=== PATIENT | female | born 1985 | race Caucasian/White ===

== ENCOUNTER → 2016-03-05 | Outpatient (CLI) | payer OTHER ==
[~2016-03-05] MED LIST: ACET-1256 PO; CLC100 PO; DIVA250T PO; DIVA500T3 PO; EFFSR75 PO; IBUP-1050 PO; LEVO137T3 PO; MISC-696; MTR600X PO; NITR1CAP16 PO; ONDA4TAB46 PO; OXYC-57 PO; PRENTAB65 PO; PROM5SUP2 PR
[2016-03-05 11:10] LABS: HEMATOCRIT 33.4 % (37-47)
[2016-03-05 12:01] LABS: URINE APPEARANCE CLEAR (CLEAR); URINE BILIRUBIN NEG (NEG); URINE COLOR YELLOW; URINE NITRITE NEG (NEG); URINE PH 8.5 (4.5-7.5); URINE SPECIFIC GRAVITY 1.015 (1.000-1.030); UROBILINOGEN NEG (NEG)
[2016-03-05 12:10] LABS: GTGD 50 Grams
[2016-03-05 12:21] LABS: MANUAL MICROSCOPIC REQUIRED? NO; REVIEW REQ? NO
== END | disposition home or self-care (01) ==
LOC: C.LAB1850 09:24
PROVIDERS: ATTEND Obstetrics & Gynecology
DX: O09.93 Supervision of high risk pregnancy, unspecified, third trimester (principal); O99.283 Endocrine, nutritional and metabolic diseases complicating pregnancy, third trimester; E03.8 Other specified hypothyroidism

== ENCOUNTER → 2016-03-31 | Outpatient (CLI) | payer OTHER | END | disposition home or self-care (01) | LOC: C.LAB1850 11:17 | PROVIDERS: ATTEND Internal Medicine Endocrinology, Diabetes & Metabolism | DX: E03.8 Other specified hypothyroidism (principal) ==

== ENCOUNTER → 2016-04-30 | Outpatient (CLI) | payer OTHER | END | disposition home or self-care (01) | LOC: C.LABSPEC 11:28 | PROVIDERS: ATTEND Obstetrics & Gynecology | DX: O09.93 Supervision of high risk pregnancy, unspecified, third trimester (principal) ==

== ENCOUNTER 2016-05-17 13:10 | Inpatient (IN) | payer OTHER ==
[~2016-05-17] VITALS: Ht 170.2 cm; Wt 90.5 kg
[~2016-05-17 13:10] MED LIST changes: -ACET-1256 PO; -CLC100 PO; -DIVA250T PO; -DIVA500T3 PO; -EFFSR75 PO; -IBUP-1050 PO; -MISC-696; -MTR600X PO; -NITR1CAP16 PO; -OXYC-57 PO; -PROM5SUP2 PR
[2016-05-17] MEDS ORDERED: LACTATED RINGER'S 1000ML 1,000 ML IV SCH ×2 (13:35→17:06)
[2016-05-17] MEDS ORDERED: CITRIC ACID/SODIUM CITRATE 15 ML UDC PO ONE (13:45)
[2016-05-17] MEDS ORDERED: CEFAZOLIN IV 2,000 MG in DEXTROSE 5% 50ML 50 ML IV ONE (14:00)
[2016-05-17 14:40] VITALS: Ht 170.2 cm; Wt 90.5 kg
[2016-05-17] MEDS ORDERED: FENTANYL CITRATE INJ 50 MCG/1 ML 2 ML VIAL ONE (16:32)
[2016-05-17] MEDS ORDERED: MoRPHine SULFATE PF 1 MG/ML 10 ML AMP/VIAL ONE (16:32)
[2016-05-17] MEDS ORDERED: OXYTOCIN INJ 20 UNITS in LACTATED RINGER'S 1000ML 1,000 ML IV SCH (17:06)
[2016-05-17] MEDS ORDERED: KETOROLAC TROMETHAMINE 30 MG/ML VIAL ONE (17:08)
[2016-05-17] MEDS ORDERED: ESMOLOL HCL 10 MG/ML 10 ML VIAL ONE (17:08)
[2016-05-17] MEDS ORDERED: METOPROLOL TARTRATE 1 MG/ML VIAL ONE (17:08)
[2016-05-17] MEDS ORDERED: DIPHTHERIA/TETANUS/PERTUSSIS 0.5 ML SYR/VIAL IM. ONE (17:15)
[2016-05-17] MEDS ORDERED: KETOROLAC TROMETHAMINE 30 MG/ML VIAL IV. PRN (17:15)
[2016-05-17] MEDS ORDERED: ONDANSETRON INJ 2 MG/ML 2 ML VIAL IV PRN ×2 (17:15→17:45)
[2016-05-17] MEDS ORDERED: SUPERCREAM 0.870 % 15GM JAR EXT PRN (17:15)
[2016-05-17] MEDS ORDERED: LANOLIN OINT EXT PRN ×2 (17:15)
[2016-05-17] MEDS ORDERED: HYDROCORTISONE ACETATE 25 MG SUPP PR PRN (17:15)
[2016-05-17] MEDS ORDERED: BENZOCAINE 20% AER SPR 82.5 GM CAN EXT PRN (17:15)
[2016-05-17] MEDS ORDERED: ONDANSETRON INJ 2 MG/ML 2 ML VIAL ONE (17:16)
[2016-05-17] MEDS ORDERED: OXYTOCIN INJ 10 UNITS/ML VIAL ONE (17:16)
--- NOTE | 2016-05-17 17:22 | [facility] Post Operative Brief Note ---
Immediate Operative Summary Operative Date May 17, 2016. Pre-Operative Diagnosis 1. 39 week iup 2. SROM 3. Prior complications due to fourth degree perineal laceration 4. desires primary caesarean section Post-Operative Diagnosis Same Procedure(s) Performed Primary Low Transverse Section for the of a viable female child Surgeon Dr.Shreya Corrigan Linux Programmer Surgeon(s) RN Estimated Blood Loss 500 Findings viable female apgars 9,9. normal uterus, tubes and ovaries bilaterally. Fluids (cc crystalloids) 1000 Specimens Placenta: Cord Blood Drains youngblood Anesthesia spinal with duramorph Complication(s) None Disposition Recovery Room / PACU
[2016-05-17] MEDS ORDERED: NALOXONE HCL INJ 1 MG in SODIUM CHLORIDE 0.9% 1000ML 1,000 ML IV PRN (17:32)
[2016-05-17] MEDS ORDERED: LACTATED RINGER'S 1000ML 500 ML IV PRN (17:32)
[2016-05-17] MEDS ORDERED: NALOXONE HCL INJ 0.08 MG in SYRINGE 1.8 ML IV PRN (17:32)
[2016-05-17] MEDS ORDERED: SODIUM CHLORIDE 0.9% 1000ML 1,000 ML IV PRN (17:32)
[2016-05-17] MEDS ORDERED: DiphenhydrAMINE HCL 50 MG/ML VIAL IV PRN (17:45)
[2016-05-17] MEDS ORDERED: NALBUPHINE HCL INJ 10 MG/ML AMP IV PRN (17:45)
[2016-05-17] MEDS ORDERED: EpHEDrine SULFATE INJ 50 MG/ML AMP IV PRN (17:45)
[2016-05-17] MEDS ORDERED: NALOXONE HCL 0.4 MG/1 ML VIAL/CARP IV PRN (17:45)
[2016-05-17] MEDS ORDERED: NO NARCOTICS OR SEDATIVES SCH (17:45)
[2016-05-17] MEDS ORDERED: PROMETHAZINE HCL INJ 25 MG in SODIUM CHLORIDE 0.9% 50ML 50 ML IV PRN (17:45)
[2016-05-17] MEDS ORDERED: MoRPHine SULFATE 2 MG/ML CARP IV PRN (17:45)
[2016-05-17] MEDS ORDERED: MoRPHine SULFATE PF 1 MG/ML 10 ML AMP/VIAL EPI PRN (17:45)
--- NOTE | 2016-05-17 17:47 | OPERATIVE REPORT ---
DATE OF OPERATION: 05/17/2016 PREOPERATIVE DIAGNOSES: 1. 39-WEEK intrauterine . 2. Prior history of fourth degree obstetrical laceration with desire for section. 3. Spontaneous rupture of membranes. POSTOPERATIVE DIAGNOSES: Same. PROCEDURE: Primary low transverse section. SURGEON: Dr. Patricia Corrigan. CRIMINAL RESEARCH SPECIALIST: RN. IV FLUIDS: 1000 mL. ESTIMATED BLOOD LOSS: 500 mL. ANESTHESIA: Spinal with Duramorph. FINDINGS: Viable female , Apgars 9 and 9. Normal uterus, tubes and ovaries bilaterally. INDICATIONS: A 31-year-old 2, para 1-0-0-1 with a history of prior spontaneous vaginal delivery complicated by a complicated fourth degree perineal laceration, who desired primary for this delivery. The patient presented with confirmed spontaneous rupture of membranes. DESCRIPTION OF PROCEDURE: The patient was taken to the operating room and identified. After adequate spinal anesthesia was obtained, she was placed in the supine position with a leftward tilt and prepped and draped in the usual sterile fashion. The knife was used to create a Pfannenstiel skin incision that was carried down to underlying layer of fascia. The fascia was nicked in the midline and this opening was extended laterally using Salamanca scissors. Koko clamps were placed in the superior and inferior aspects of the fascial incision tenting it upwards and the underlying rectus muscles were dissected off the overlying fascia both sharply and bluntly using Salamanca scissors. The rectus muscles were bluntly in the midline. The peritoneal cavity was bluntly entered into. This opening was extended superiorly and inferiorly sharply with direct visualization of the bladder and then stretched. The bladder blade was placed. The vesicouterine peritoneum was grasped and elevated. It was opened up into sharply with Metzenbaum scissors and a bladder flap was created both sharply and digitally. The bladder blade was replaced. Knife was used to create a hysterotomy that was then stretched. The operators hand was placed through the hysterotomy and the bladder blade was removed. With fundal pressure, the cephalic was delivered. The nose and mouth were bulb suctioned. A double nuchal cord that was loose was reduced. The shoulders and body were delivered with ease. The infant was vigorous and crying at . Cord blood was obtained. The placenta was manually expressed. The uterus was exteriorized and cleared of all clots and debris. It was closed in 2 layers, first interlocking stitch of 0 Vicryl followed by an imbricating stitch of 0 Vicryl. Two bleeding sites in the midline were noted and were stitched with [id number] sutures of 0 Vicryl and 2-0 Vicryl for excellent hemostasis. The pelvis was irrigated. The uterus was returned to the abdomen. The gutters were cleared of all clots and debris. The hysterotomy was reinspected and noted to be hemostatic. The fascia was closed in a running fashion using 0 Vicryl. The subcutaneous fat was copiously irrigated. The subcutaneous tissue was reapproximated using 2-0 chromic. The skin was then closed in a subcuticular fashion using 4-0 Vicryl. All sponge, lap and needle counts were correct x2. The patient was returned to the recovery room in stable condition. I attest to the content of the Intraoperative Record and any orders documented therein. Any exceptio ns are noted below.
--- NOTE | 2016-05-17 17:54 | Anesthesiology Progress Note ---
Anesthesia Post Op Note Date & Time May 17, 2016 at 17:53 Notes Mental Status: alert / awake / arousable, participated in evaluation Pt Amnestic to Procedure: Yes Nausea / Vomiting: adequately controlled Pain: adequately controlled Airway Patency, RR, SpO2: stable & adequate BP & HR: stable & adequate Hydration State: stable & adequate Neuraxial Anesthesia: was administered, sensory block is resolving Anesthetic Complications: no major complications apparent
[2016-05-17] MEDS: MEPERIDINE HCL 25 MG/ML CARP IV PRN ×2 (19:26→22:01)
[2016-05-17 20:20] VITALS: BP 117/69; PULSE 77; TEMP 36.8; O2SAT 97; O2SAT 98
[2016-05-17] MEDS: DOCUSATE SODIUM 100 MG CAP PO SCH (20:20)
[2016-05-17] MEDS: SIMETHICONE 80 MG CHEW PO SCH (20:20)
[2016-05-17 20:50] VITALS: BP 144/84; PULSE 71; O2SAT 96
[2016-05-17 21:20] VITALS: BP 118/57; PULSE 75; O2SAT 97
[2016-05-17 22:20] VITALS: BP 133/77; PULSE 72; O2SAT 97
[2016-05-17 23:30] VITALS: BP 120/73; PULSE 77; TEMP 37.2; O2SAT 98
[2016-05-18] VITALS (12 sets, daily range): BP systolic 107–137; BP diastolic 60–87; PULSE 70–83; TEMP 36.7–36.8; O2SAT 93–99
[2016-05-18] MEDS: KETOROLAC TROMETHAMINE 30 MG/ML VIAL IV. PRN ×2 (00:59→07:12)
--- NOTE | 2016-05-18 07:03 | Progress Note ---
Subjective May 18, 2016. Subjective conversation w/ patient, physical exam Voiding: youngblood catheter in place Passing Gas: Yes Diet Tolerance: Clear Liquids Lochia: Small Feeding Type: Breast Feeding Pain: having some pain Objective Vital Signs Date Time Temp Pulse Resp B/P Pulse Ox O2 Delivery O2 Flow Rate FiO2 05/18/16 05:25 16 96 05/18/16 04:30 18 99 05/18/16 03:30 36.7 70 18 107/60 96 Room Air 05/18/16 03:30 18 96 05/18/16 02:30 18 97 05/18/16 01:30 18 97 05/18/16 00:30 18 98 05/17/16 23:30 37.2 77 18 120/73 98 Room Air 05/17/16 23:30 18 98 05/17/16 23:30 Room Air 05/17/16 22:20 72 18 133/77 97 Room Air 05/17/16 22:20 18 97 05/17/16 21:20 18 97 05/17/16 21:20 75 18 118/57 97 Room Air 05/17/16 20:50 71 18 144/84 96 Room Air 05/17/16 20:20 36.8 77 18 117/69 98 Room Air 05/17/16 20:20 18 98 05/17/16 20:20 98 Room Air Physical Exam General Appearance: WELL-APPEARING, WD/WN, NO APPARENT DISTRESS Respiratory/Chest: lungs clear Cardiovascular: regular rate, rhythm Abdomen: non tender, soft Fundus: Firm, Relation to Umbilicus (2 down) Incision Description: Clean, Dry & Intact (dressing still in place) Extremities: non-tender Laboratory Results Last 24 Hours Test 05/18/16 06:00 Assessment and Plan Problem List Post-Op Day#: 1 Continue Routine Care: stable. routine care. needs pain mgmt. plan to ambulate later today, d/c youngblood later this am. 6wks pp check. cbc pending. breast feeding.
[2016-05-18] MEDS ORDERED: LEVOTHYROXINE 137 MCG TAB PO SCH (07:30)
[2016-05-18 07:31] LABS: MEAN CORPUSCULAR HGB CONC 31.7 g/dl (32-36)
[2016-05-18 07:45] LABS: HEMATOCRIT 33.4 % (37-47); MEAN CELL VOLUME 76.3 fL (80-100); MEAN CORPUSCULAR HEMOGLOBIN 24.2 pg (25-34); RED BLOOD COUNT 4.38 M/uL (4.2-5.4); WHITE BLOOD COUNT 10.94 K/uL (4.8-10.8)
[2016-05-18] MEDS: DOCUSATE SODIUM 100 MG CAP PO SCH ×2 (08:05→20:39)
[2016-05-18] MEDS: SIMETHICONE 80 MG CHEW PO SCH ×3 (08:05→20:39)
[2016-05-18 08:24] LABS: BASO % 0.1 %; BASO ABS # 0.01 K/uL (0-0.2); COMPLETE YES; ECHINOCYTES 1+; EOS % 0.9 %; GIANT PLATELETS 1+; IG% 0.4 %; LYMPH % 11.3 %; LYMPH ABS # 1.24 K/uL (1.2-3.4); MONO % 3.9 %; NEUT % 83.4 %; PLATELET COUNT 130 K/uL (130-400); PLT ESTIMATE DECREASED
[2016-05-18] MEDS ORDERED: DC INTRASPINAL MORPHINE SCH (10:00)
[2016-05-18] MEDS ORDERED: ZOLPIDEM TARTRATE 5 MG TAB PO PRN (10:00)
[2016-05-18] MEDS ORDERED: DiphenhydrAMINE HCL 50 MG/ML VIAL IV PRN (10:00)
[2016-05-18] MEDS: OXYCODONE/ACETAMINOPHEN 5-325 TAB PO PRN ×4 (10:10→22:09)
[2016-05-18] MEDS: IBUPROFEN 600 MG TAB PO PRN ×3 (14:43→22:08)
[2016-05-19 00:30] VITALS: BP 117/75; PULSE 77; TEMP 36.6
[2016-05-19] MEDS: IBUPROFEN 600 MG TAB PO PRN ×5 (02:42→21:11)
[2016-05-19] MEDS: OXYCODONE/ACETAMINOPHEN 5-325 TAB PO PRN ×5 (02:44→21:12)
--- NOTE | 2016-05-19 06:47 | Progress Note ---
Subjective May 19, 2016. Subjective conversation w/ patient, physical exam Ambulation: ambulating normally Voiding: no voiding problems Passing Gas: Yes Diet Tolerance: Regular Diet Lochia: Small Feeding Type: Breast Feeding Review of Systems Constitutional: No chills, No fever, No sweats Respiratory: No cough, No shortness of breath Cardiac: No chest pain, No claudication Objective Vital Signs Date Time Temp Pulse Resp B/P Pulse Ox O2 Delivery O2 Flow Rate FiO2 05/19/16 00:30 Room Air 05/19/16 00:30 36.6 77 18 117/75 Room Air 05/18/16 15:35 Room Air 05/18/16 15:35 36.8 83 18 137/87 Room Air 05/18/16 10:00 20 95 05/18/16 09:00 18 97 05/18/16 08:00 18 93 05/18/16 08:00 93 Room Air 05/18/16 07:30 36.7 71 20 114/65 Room Air 05/18/16 07:00 20 96 Physical Exam General Appearance: WELL-APPEARING, NO APPARENT DISTRESS Respiratory/Chest: lungs clear, no accessory muscle use Cardiovascular: regular rate, rhythm, no murmur Fundus: Firm, Non-Tender, Relation to Umbilicus Incision Description: Clean, Dry & Intact Extremities: non-tender, no calf tenderness Laboratory Results Last 24 Hours Test 05/19/16 06:00 Assessment and Plan Problem List Medical Problems: (1) Status: Acute (2) Seizure-like activity Status: Acute (3) Vaginal bleeding Status: Acute (4) Vomiting Status: Acute Post-Op Day#: 2 Continue Routine Care: s/p C section Day 2 - vitals reviewed and wnl - Hgb 10.6 yesterday - Blood: O- (baby O-), GBS-, Rubella immune - patients mood improved since yesterday (on venlafaxine 75mg), patient with follow with PCP as outpatient - Patient doing well clinically - Encourage ambulation, encourage breast feeding, monitor lochia - CONTINUE ROUTINE POST C SECTION CARE Resident Physician Supervision Note: I was present with Dr. Castillo during the history and exam. I discussed the case with the resident and agree with the findings and plan as documented in the note. Any exceptions or clarifications are listed here: Doing well. Discussed mood. Just was bad day with crying baby yesterday. She is feeling better today but agrees to start Effexor. She will plan 2wk check up with us and rec she establish with PCP for residential mgmt. Discussed therapy as well. Pt will consider. No HI or SI. Routine care. Hgb pending today. Documented By: Patricia Corrigan
[2016-05-19] MEDS: LEVOTHYROXINE 175 MCG TAB PO SCH (07:47)
[2016-05-19] MEDS: SIMETHICONE 80 MG CHEW PO SCH ×4 (07:49→19:45)
[2016-05-19] MEDS: DOCUSATE SODIUM 100 MG CAP PO SCH ×2 (07:49→19:45)
[2016-05-19 07:56] LABS: HEMATOCRIT 33.6 % (37-47)
[2016-05-19 08:00] VITALS: BP 112/71; PULSE 78; TEMP 36.6; O2SAT 97
[2016-05-19] MEDS ORDERED: VENLAFAXINE HCL XR 75 MG CAPXR PO SCH (08:00)
[2016-05-19] MEDS: VENLAFAXINE HCL XR 75 MG CAPXR PO SCH (08:11)
[2016-05-19 15:35] VITALS: BP 136/78; PULSE 65; TEMP 36.9
[2016-05-19] MEDS ORDERED: OXYC-57 PO (21:04)
[2016-05-19] MEDS ORDERED: CLC100 PO (21:04)
[2016-05-19] MEDS ORDERED: MTR600X PO (21:04)
--- NOTE | 2016-05-19 21:05 | Discharge Instructions ---
Discharge Instructions Date of Service May 19, 2016. Admission Reason for Admission: R/O Rupture Of Membrane Discharge Discharge Diagnosis / Problem: recovery from section Discharge Goals Goal(s): Routine recovery after Activity Recommendations Activity Limitations: per Instructions/Follow-up section . Instructions / Follow-Up Instructions / Follow-Up ACTIVITY RECOMMENDATIONS: * Gradual return to full activity over the next 2-3 weeks. * No lifting - nothing heavier than baby over the next 2-3 weeks. * Do not engage in vigorous exercise, sexual activity or sports until cleared by your physician. * Do not drive or operate any motorized equipment until cleared by your physician. * You may shower/bathe daily. MEDICATIONS: For discomfort or pain, you may use Acetaminophen (Tylenol), Ibuprofen (Advil), or Naproxen (Aleve) following the package directions. For constipation you may use Colace following the package directions. BREAST CARE: If you are not breast feeding: * Wear a supportive bra 24 hours a day for one to two weeks. * Avoid stimulating your breasts and nipples as much as possible during the first few weeks after delivery. * When taking a shower, have the warm water hit your back, not breasts. * When your breasts feel full, apply ice packs. Usually three to four times a day helps ease the discomfort. * Take a mild pain medication (Tylenol / Motrin) when you are uncomfortable. If breast feeding: * Use breast milk to lubricate nipples. Lansinoh cream may be used for sore nipples. You do not need to remove cream prior to breast feeding. If using a different brand of cream, check the label for directions regarding removal of cream prior to nursing. * Wear a supportive bra. * If having problems with breasts or breast feeding, call a decorator consultant or your health care provider. EPISIOTOMY CARE: After delivery, if you have an episiotomy (stitches), the following steps will ease discomfort and aid healing. * For the first 24 hours after delivery, place ice packs next to your episiotomy to help reduce swelling. * After the first 24 hour-period, sitz baths, either portable or in the tub, are suggested. A shower with a shower arm sprayed over the episiotomy may be comforting. * Carmen care should be done after each voiding and bowel movement. Squirt warm water from a plastic bottle over the perineum (region of the body between the anus and urinary opening) and pat dry. * Use Dermoplast to ease discomfort. Shake container. [place] directly over the episiotomy. Place a Tucks on a clean sanitary pad next to your episiotomy. SPECIAL CARE INSTRUCTIONS: When you are discharged from the hospital, it is important for you to follow the instructions listed below: * During the first week at home, you should be able to care for yourself and your baby. In addition, the usual light household activities are encouraged. * Limit your activities to the way you feel. Do not try to clean the house or move furniture. Be sensible. * If you actively engage in sports and have done so up until the time of your delivery, you may resume these activities as soon as you feel able. This may take up to one month or even longer. Use good judgment. * Continue to take your vitamins for at least six weeks after the of your baby. * Your diet need not be limited unless you were on a special diet before your delivery. Breast-feeding mothers need around 2500 calories per day and at least 64-80 ounces of fluid per day (8 to 10 glasses). * You should eat foods from the four major food groups. Crash diets or fad diets are to be avoided. Eating lean meats, fresh fruits and vegetables, low-fat dairy products, high fiber foods and a regular exercise program, will help you get back to your pre- weight without putting your health at risk. * Constipation is sometimes a problem after delivery. Take a mild laxative as needed. If breast feeding, Milk of Magnesia is acceptable to use. You may use a suppository or Fleets enema if no episiotomy. * A daily shower or tub bath is suggested. Be sure to thoroughly and gently dry the perineum. * A bloody vaginal discharge will usually continue until around four weeks post . A small amount of bleeding may continue for as long as six weeks. Vaginal discharge changes from the bright red bleeding after delivery to pink then brownish and finally yellowish-pink before becoming white and disappearing. * Bleeding may increase with activity. Your first period may come in 4-8 weeks. If you are breast feeding, your period may be delayed even longer. * Catlin (sex) can begin whenever both you and your partner feel comfortable and do not have any form of genital infection. It is recommended that you wait at least six weeks for internal and external healing to occur. If you have questions, please talk to your health care practitioner. A condom should be used to prevent infection and . * Foreplay, gentle intercourse and lubrication is very important the first several times to prevent pain. A water-based lubricant such as K-Y jelly or Astroglide may be used. * If you have RH negative blood and your baby is RH positive, you will receive RHOGAM by injection prior to discharge. The nurse will give you a card to keep with you that has the date and place that you received RHOGAM after delivery. * During your care, you had a Rubella screen done to check for the presence of rubella antibodies in your blood. If your test was negative, you will receive a Rubella vaccine prior to discharge. This vaccine may cause a fever, soreness at the injection site and flu-like symptoms. If these symptoms persist, notify your health care practitioner. is not advised for one month after a Rubella vaccine. * Verbalizes understanding of car seat law as reviewed with patient nursing. * Car Seat hand-out given and reviewed with patient by nursing. * Shaken baby information reviewed with patient by nursing. Call you doctor if: * Heavy bleeding (saturating several pads an hour) or passing clots the size of your fist. * A fever >101 degrees F (38.3 degrees C) on two occasions four hours apart and /or chills. * Unusual pain in the pelvic or vaginal areas. * "Baby Blues" lasting longer than two weeks. If you have any questions or concerns, call your health care practitioner at . FOLLOW UP VISIT: * Please call the office at to schedule a 6 week examination. It is important you keep this appointment. It is important for you to make arrangements for either yearly or twice yearly check-ups thereafter. Current Hospital Diet Patient's current hospital diet: Gluten Free Diet, Regular OB Diet Discharge Diet Recommended Diet: Regular OB Diet Procedures Procedures Performed: Primary Low Transverse Section for the of a viable female child Pending Studies Studies pending at discharge: no Medical Emergencies . Who to Call and When: Medical Emergencies: If at any time you feel your situation is an emergency, please call 911 immediately. . Non-Emergent Contact Non-Emergency issues call your: Salon Shampoo Assistant . . "Provider Documentation" section prepared by Lola Peoples. VTE Core Measure Inpt VTE Proph given/why not?: Treatment not indicated
[2016-05-20] VITALS: BP 116/64; PULSE 64; TEMP 36.7
[2016-05-20] MEDS: IBUPROFEN 600 MG TAB PO PRN ×3 (01:46→12:25)
[2016-05-20] MEDS: OXYCODONE/ACETAMINOPHEN 5-325 TAB PO PRN ×3 (01:49→12:25)
[2016-05-20 02:00] VITALS: O2SAT 98
--- NOTE | 2016-05-20 07:22 | Progress Note ---
Subjective May 20, 2016. Subjective conversation w/ patient, physical exam Ambulation: ambulating normally Voiding: no voiding problems Diet Tolerance: Regular Diet Lochia: Moderate Feeding Type: Breast Feeding Comment: doing well on Effexor now. Review of Systems Constitutional: No chills, No fatigue, No fever, No problem reported, No sweats , No weakness, No weight loss Objective Vital Signs Date Time Temp Pulse Resp B/P Pulse Ox O2 Delivery O2 Flow Rate FiO2 05/20/16 02:00 98 Room Air 05/20/16 00:00 Room Air 05/20/16 00:00 36.7 64 16 116/64 Room Air 05/19/16 15:35 Room Air 05/19/16 15:35 36.9 65 18 136/78 Room Air 05/19/16 08:00 Room Air 05/19/16 08:00 36.6 78 20 112/71 97 Physical Exam General Appearance: WELL-APPEARING, NO APPARENT DISTRESS Abdomen: soft Fundus: Firm, Non-Tender, Relation to Umbilicus (2 below) Incision Description: Clean, Dry & Intact Extremities: no calf tenderness Laboratory Results Last 24 Hours Test 05/19/16 07:22 Hemoglobin 10.8 g/dL Hematocrit 33.6 % Assessment and Plan Problem List Medical Problems: (1) Status: Acute (2) Seizure-like activity Status: Acute (3) Vaginal bleeding Status: Acute (4) Vomiting Status: Acute Post-Op Day#: 3 Continue Routine Care: stable post-op / progress continue on Effexor rx's for percocet & motrin follow up in 6 weeks
[2016-05-20] MEDS ORDERED: EFFSR75 PO (07:23)
[2016-05-20] MEDS ORDERED: MISC-696 (08:44)
[2016-05-20 08:45] VITALS: BP 124/81; PULSE 81; TEMP 36.9
[2016-05-20] MEDS: VENLAFAXINE HCL XR 75 MG CAPXR PO SCH (08:47)
[2016-05-20] MEDS: DOCUSATE SODIUM 100 MG CAP PO SCH (08:47)
[2016-05-20] MEDS: LEVOTHYROXINE 175 MCG TAB PO SCH (08:47)
[2016-05-20] MEDS: SIMETHICONE 80 MG CHEW PO SCH ×2 (08:48→12:24)
[2016-05-20 12:22] VITALS: BP_DIAS 81; PULSE 81; TEMP 36.9
--- NOTE | 2016-05-21 19:02 | DISCHARGE SUMMARY ---
ADMISSION DIAGNOSES: 1. 39-week intrauterine . 2. Spontaneous rupture of membranes. 3. Prior history of fourth degree obstetrical laceration with desire for section. DISCHARGE DIAGNOSES: Same. PROCEDURE: Primary low transverse section. BRIEF HISTORY AND HOSPITAL COURSE: A 31-year-old 2, para 1-0-0-1 with a history of a prior spontaneous vaginal delivery complicated by a complicated fourth degree perineal laceration, who desired primary for this delivery. She presented to the hospital with confirmed spontaneous rupture of membranes. She underwent the above stated procedure without incident. Her estimated blood loss was 500 mL. Her postop hemoglobin was 10.8. Her postop course and recovery was complicated by depressed mood. For that reason, she was started on Effexor which was a prior medication she had used for depression. Her postop course and recovery was otherwise unremarkable. She was tolerating a regular diet, voiding spontaneously without difficulty and ambulating without difficulty and was stable for discharge to home on her postop day #3. She was given prescriptions for Percocet and Motrin. She was instructed to follow up in 6 weeks' time for routine checkup. She was aware of a possible 2-week checkup for mood and was instructed to follow up with her PCP for her ongoing Effexor use and for her depressed mood.
== END 2016-05-20 14:00 | disposition home or self-care (01) | DRG 765 ==
LOC: C.OPB 13:10 → C.LD 13:10 → C.OPB 13:46 → C.OBG 19:44
PROVIDERS: ADMIT Obstetrics & Gynecology; ATTEND Obstetrics & Gynecology
PROC: 10D00Z1 Extraction of Products of Conception, Low, Open Approach (ICD-10-PCS; principal; 2016-05-17 14:22)
DX: O42.02 Full-term premature rupture of membranes, onset of labor within 24 hours of rupture (principal); O98.52 Other viral diseases complicating childbirth; O36.0130 Maternal care for anti-D [Rh] antibodies, third trimester, not applicable or unspecified; O26.62 Liver and biliary tract disorders in childbirth; O69.81X0 Labor and delivery complicated by cord around neck, without compression, not applicable or unspecified; B00.9 Herpesviral infection, unspecified; K90.0 Celiac disease; O99.284 Endocrine, nutritional and metabolic diseases complicating childbirth; E03.9 Hypothyroidism, unspecified; O99.02 Anemia complicating childbirth; D64.9 Anemia, unspecified; O99.214 Obesity complicating childbirth; E66.9 Obesity, unspecified; O26.893 Other specified pregnancy related conditions, third trimester; Z68.31 Body mass index [BMI] 31.0-31.9, adult; Z3A.39 39 weeks gestation of pregnancy; Z37.0 Single live birth

== ENCOUNTER 2016-07-14 12:04 | Emergency (ER) | payer OTHER ==
[~2016-07-14] VITALS: Ht 172.7 cm; Wt 76.9 kg
[~2016-07-14 12:04] MED LIST changes: +CLC100 PO; +EFFSR75 PO; +MISC-696; +MTR600X PO; -ONDA4TAB46 PO; +OXYC-57 PO
[2016-07-14 12:10] VITALS: TEMP 36.8; Ht 172.7 cm; Wt 76.9 kg
[2016-07-14] MEDS ORDERED: ONDANSETRON INJ 2 MG/ML 2 ML VIAL IV PRN (12:30)
[2016-07-14 13:04] VITALS: O2SAT 99
[2016-07-14 13:05] LABS: HEMATOCRIT 43.4 % (37-47); MEAN CELL VOLUME 78.9 fL (80-100); MEAN CORPUSCULAR HEMOGLOBIN 23.6 pg (25-34); MEAN PLATELET VOLUME 11.3 fL (7.4-10.4); PLATELET COUNT 200 K/uL (130-400); WHITE BLOOD COUNT 7.16 K/uL (4.8-10.8)
[2016-07-14 13:15] LABS: URINE APPEARANCE CLEAR (CLEAR); URINE BILIRUBIN NEG (NEG); URINE COLOR YELLOW; URINE NITRITE POS (NEG); URINE SPECIFIC GRAVITY 1.013 (1.000-1.030); UROBILINOGEN NEG (NEG); ZZUR CULT IF INDIC CLEAN CATCH YES
[2016-07-14 13:17] LABS: MANUAL MICROSCOPIC REQUIRED? NO; REVIEW REQ? YES
[2016-07-14 13:24] LABS: BUN/CREATININE RATIO 11.5 (10-20); CALCIUM 8.2 mg/dl (8.5-10.1); CREATININE 0.88 mg/dl (0.60-1.20); POTASSIUM 3.8 mmol/L (3.5-5.1)
[2016-07-14 13:27] LABS: ALB/GLOB RATIO 1.2 (0.9-2)
--- NOTE | 2016-07-14 13:31 | EMERGENCY ROOM VISIT NOTE ---
History Report prepared by Josephine: Chantell Contreras Under the Supervision of: Dr. Marcus Doyle M.D. First contact with patient: 12:16 Chief Complaint: OTHER COMPLAINT Stated Complaint: POSSIBLE SEIZURE History of Present Illness The patient is a 31 year old female who presents to the Emergency Room with complaints of a sudden seizure that occurred 45 minutes prior to arrival. The patient report that she has a history of a previous seizure in August of 2015. She states that she had an MRI, but denies any EEG. The patient reports that her seizure was related to hypokalemia, hypotension, and hypoglycemia. Per the patient's significant other, he and the patient were sitting on their porch with their two month old baby. He states that the patient had handed the baby over to him and went inside to set up a baby swing. The patient's significant other states that he heard the patient screaming, and ran inside to her. He states that he found the patient with her arms outward and rigid, her shaking, and her eyes rolled back in her head. The patient's significant other reports that the patient was also pale and her lips had turned blue. He states that the patient's pulse was tachycardic and fluttering. The patient's significant other states that he called for an ambulance. He states that the patient's episode lasted 2.5 minutes, and she was post-ictal afterwards. The patient's significant other reports that the patient had fallen into a metal item which caused abrasions to her back. The patient states that she feels less confused, but reports nausea and fatigue. She denies any chest pain, fever, chills, palpitations, back pain, or leg pain. The patient reports normal urination and bowel movements. The patient states that she has been feeling fatigued because she has not gotten the proper amount of sleep due to her 2 month old baby. She reports a headache that started last night and persisted through the morning. The patient states that she took Advil, which alleviated her headache. She additionally notes a history of Celiac disease, but states that she has not been complaint with her diet. The patient notes a history of hypothyroidism, but denies any history of diabetes or hypertension. She denies any drug use. Source of History: patient, spouse/significant other Onset: just prior to arrival Position: other (global) Quality: other (seizure) Timing: other (sudden) Associated Symptoms: + fatigue, + headache, + nausea, No back pain, No chest pain, No chills, No fevers Note: associated symptoms: the patient's arms were outward and rigid, shaking, eyes rolled back in her head, pale, lips turned blue, pulse tachycardic and fluttering Review of Systems All systems have been listed, reviewed, and are negative other than those previously mentioned. Please see Additional Medical History Sheet. Past Medical & Surgical Medical Problems: (1) 39 weeks gestation of (2) Amniotic fluid leaking (3) Anxiety (4) Celiac disease (5) Cyst of ovary (6) Depression (7) Gastroesophageal reflux disease (8) History of maternal fourth degree perineal laceration, currently in third trimester (9) Laparoscopy (10) Migraine Family History Hypertension Social History Smoking Status: Current Some Day Smoker Smokeless Tobacco Use: No Alcohol Use: none Drug Use: none Marital Status: in relationship Housing Status: lives with family Occupation Status: employed Current/Historical Medications Scheduled Divalproex Sodium (Depakote Er), 1 TAB PO HS Divalproex Sodium (Depakote Er), 1 TAB PO HS Levothyroxine Sodium (Levothyroxine Sodium), 137 MCG PO QAM Nitrofurantoin Monohyd Macro (Macrobid), 100 MG PO BID Scheduled PRN Ibuprofen (Ibuprofen), 600 MG PO Q4H PRN for Pain, BROWNING, Cramping, or Fever Allergies Coded Allergies: Penicillins (Verified Allergy, Intermediate, HIVES, 07/14/16) Amoxicillin (Verified Allergy, Mild, HIVES, 07/14/16) Gluten (Verified Allergy, Unknown, CELIAC'S DISEASE, 07/14/16) MIGRAINES, N/V, BODY ACHES, FATIGUE Sulfa Antibiotics (Verified Allergy, Unknown, HIVES, 07/14/16) Sulfamethoxazole w/Trimethoprim (Verified Allergy, Unknown, HIVES, 07/14/16 ) Physical Exam Vital Signs Date Time Temp Pulse Resp B/P Pulse Ox O2 Delivery O2 Flow Rate FiO2 07/14/16 15:19 90 18 135/82 95 Room Air 07/14/16 14:15 88 16 133/87 94 Room Air 07/14/16 13:04 92 20 126/83 90 93 136/86 101 127/88 07/14/16 13:04 95 5/29/17 13:04 99 Room Air 07/14/16 12:10 36.8 100 18 131/91 99 Room Air Physical Exam GENERAL: Patient awake, alert, oriented x 3. Patient follows commands. Patient does not appear toxic. Patient is adequately hydrated and well- nourished. SKIN: No erythema, pallor, cyanosis or rash HEENT: Normal head, pupils equal, reactive to light and accommodation. Ears normal. Oral cavity and posterior pharynx appear normal. Neck: Without adenopathy, no neck vein distention. LUNGS: Clear to auscultation. No wheezes, no rales, no rhonchi. HEART: No murmurs. No gallops. No rubs ABDOMEN: No masses, no rebound, no hepatomegaly or splenomegaly. EXTREMITIES: No signs of trauma. No pedal or pretibial edema. No calf or thigh tenderness. NEUROLOGIC: Cranial nerves II-XII within normal limits. No gross motor sensory function deficits. BACK: abrasions. Medical Decision & Procedures ER Provider Diagnostic Interpretation: X ray results are stated below per my interpretation and the radiologist's interpretation. CHEST 2 VIEWS ROUTINE HISTORY: seizure COMPARISON: Chest 05/17/2012. FINDINGS: The lungs are clear. Cardiac silhouette is normal in size. No pleural effusions. No pneumothorax. IMPRESSION: No acute process. Electronically signed by: Nate Alanis M.D. 07/14/2016 1:56 PM Dictated Date/Time: 07/14/2016 1:55 PM Laboratory Results 07/14/16 12:47 07/14/16 12:47 Test 07/14/16 12:47 07/14/16 12:50 Red Blood Count 5.50 M/uL (4.2-5.4) Mean Corpuscular Volume 78.9 fL (80-100) Mean Corpuscular Hemoglobin 23.6 pg (25-34) Mean Corpuscular Hemoglobin Concent 30.0 g/dl (32-36) RDW Standard Deviation 52.9 fL (36.4-46.3) RDW Coefficient of Variation 18.1 % (11.5-14.5) Mean Platelet Volume 11.3 fL (7.4-10.4) Anion Gap 5.0 mmol/L (3-11) Est Creatinine Clear Calc Drug Dose 100.1 ml/min Estimated GFR () 100.8 Estimated GFR (Non- 86.9 BUN/Creatinine Ratio 11.5 (10-20) Calcium Level 8.2 mg/dl (8.5-10.1) Total Bilirubin 0.5 mg/dl (0.2-1) Aspartate Amino Transf (AST/SGOT) 19 U/L (15-37) Alanine Aminotransferase (ALT/SGPT) 32 U/L (12-78) Alkaline Phosphatase 81 U/L (45-117) Total Protein 6.7 gm/dl (6.4-8.2) Albumin 3.7 gm/dl (3.4-5.0) Globulin 3.0 gm/dl (2.5-4.0) Albumin/Globulin Ratio 1.2 (0.9-2) Urine Color YELLOW Urine Appearance CLEAR (CLEAR) Urine pH 8.0 (4.5-7.5) Urine Specific Somis 1.013 (1.000-1.030) Urine Protein NEG (NEG) Urine Glucose (UA) NEG (NEG) Urine Ketones NEG (NEG) Urine Occult Blood TRACE (NEG) Urine Nitrite POS (NEG) Urine Bilirubin NEG (NEG) Urine Urobilinogen NEG (NEG) Urine Leukocyte Esterase MODERATE (NEG) Urine WBC (Auto) >30 /hpf (0-5) Urine RBC (Auto) 5-10 /hpf (0-4) Urine Hyaline Casts (Auto) /lpf (0-5) Urine Epithelial Cells (Auto) 5-10 /lpf (0-5) Urine Bacteria (Auto) 4+ (NEG) Urine Pathogenic Casts /lpf (0) Urine Test NEG (NEG) Laboratory results as stated above per my review. Medications Administered Medications (Trade) Dose Ordered Sig/Eladio Route Start Time Stop Time Status Last Admin Dose Admin Ondansetron HCl (Zofran Inj) 4 mg Q1HWA PRN IV 07/14/16 12:30 07/14/16 15:41 DC 07/14/16 13:09 4 MG Divalproex Sodium (Depakote Extended Rel Tab) 500 mg NOW ONCE PO 07/14/16 14:30 07/14/16 14:31 DC 07/14/16 15:17 500 MG Nitrofurantoin Macrocrystals (Macrobid Cap) 100 mg NOW STAT PO 07/14/16 14:24 07/14/16 14:25 DC 07/14/16 15:17 100 MG ECG Indication: other (seizure) Rate (beats per minute): 93 Rhythm: normal sinus Findings: no acute ischemic change, no ectopy ED Course 1218: Past medical records reviewed. The patient was evaluated in room B9. A complete history and physical examination was performed. 1230: Ordered Zofran Inj 4 mg IV. 1350: I reevaluated the patient and she is resting comfortably. 1424: Ordered Macrobid Cap 100 mg PO. 1430: Ordered Depakote Extended Rel TAB 500 mg PO. 1448: I reevaluated the patient and she is resting comfortably. I discussed the exam findings with her and I discussed the treatment plan. She verbalized complete understanding and agreement. She is ready to go home. Medical Decision Nurses notes reviewed. Medical history sheet reviewed. Differential diagnosis includes but is not limited to: seizure disorder, metabolic disorder, arrhythmia , and infection. Medication Reconciliation: I attest that I have personally reviewed the patient' s current medication list. This is patient's second seizure. Multiple labs and urinalysis were evaluated. Please see above. The patient has no urinary symptoms but she does have what appears to be a urinary tract infection. The patient had a CT of her head and MRI within the past year and I therefore did not repeat them today. The patient will be started on valproic acid and Macrobid. The patient will need close follow-up. We have attempted to set her up with neurology. Department of Transportation form was completed. The patient was told that she cannot drive. Blood pressure Screening: Patient was found to have normal blood pressure on screening and does not require follow up. Impression Primary Impression: Seizure disorder Additional Impression: Urinary tract infection Scribe Attestation The scribe's documentation has been prepared under my direction and personally reviewed by me in its entirety. I confirm that the note above accurately reflects all work, treatment, procedures, and medical decision making performed by me. Departure Information Dispostion Home / Self-Care Prescriptions Nitrofurantoin Monohyd Macro (MACROBID) 100 Mg Cap 100 MG PO BID for 5 Days, #10 CAP Prov: Marcus Doyle M.D. 07/14/16 Divalproex Sodium (DEPAKOTE ER) 500 Mg Tab 1 TAB PO HS for 30 Days, #30 % 2 Refills Prov: Marcus Doyle M.D. 07/14/16 Divalproex Sodium (DEPAKOTE ER) 250 Mg Tab 1 TAB PO HS for 30 Days, #30 TAB 2 Refills Prov: Marcus Doyle M.D. 07/14/16 Referrals Guerita Roe DO (PCP) Forms HOME CARE DOCUMENTATION FORM, IMPORTANT VISIT INFORMATION Patient Instructions ED Seizure New Onset Unk Cause, My [facility] Additional Instructions 750 mg of Depakote at night. 1 Macrobid twice a day for 5 days. Follow-up with neurology as soon as possible. Follow-up with your family physician regarding thyroxine and Depakote. Return here immediately if you have another seizure. You cannot drive a car until cleared by neurology. Problem Qualifiers
--- NOTE | 2016-07-14 13:57 | DIAGNOSTIC IMAGING REPORT ---
CHEST 2 VIEWS ROUTINE HISTORY: seizure COMPARISON: Chest 05/17/2012. FINDINGS: The lungs are clear. Cardiac silhouette is normal in size. No pleural effusions. No pneumothorax. IMPRESSION: No acute process. Electronically signed by: Nate Alanis M.D. 07/14/2016 1:56 PM Dictated Date/Time: 07/14/2016 1:55 PM
[2016-07-14] MEDS ORDERED: NITROFURANTOIN MONOHYDRATE 100 MG CAP PO STA (14:24)
[2016-07-14] MEDS ORDERED: DIVALPROEX 500 MG EXTENDED RELEASE TAB PO ONE (14:30)
[2016-07-14] MEDS ORDERED: DIVA500T3 PO (14:55)
[2016-07-14] MEDS ORDERED: NITR1CAP16 PO (14:55)
[2016-07-14] MEDS ORDERED: DIVA250T PO (14:55)
[2016-07-14 15:19] VITALS: BP 135/82; PULSE 90; O2SAT 95
--- NOTE | 2016-07-16 12:27 | Pharmacy Progress Note ---
ED Pharmacist Culture FollowUp Date of Service: July 16, 2016. Patient was sent home with a prescription for nitrofurantoin, which should cover the Klebsiella growing from the patient's urine culture.
== END 2016-07-14 15:30 | disposition home or self-care (01) ==
LOC: EEVIPCON 12:07 → C.EDB 12:07
DX: G40.909 Epilepsy, unspecified, not intractable, without status epilepticus (principal); N39.0 Urinary tract infection, site not specified; F17.200 Nicotine dependence, unspecified, uncomplicated; Z82.49 Family history of ischemic heart disease and other diseases of the circulatory system

== ENCOUNTER 2016-11-14 14:22 | Emergency (ER) | payer OTHER ==
[~2016-11-14] VITALS: Ht 170.2 cm; Wt 66.9 kg
[~2016-11-14 14:22] MED LIST changes: -CLC100 PO; +DIVA250T PO; +DIVA500T3 PO; -EFFSR75 PO; -MISC-696; -OXYC-57 PO; -PRENTAB65 PO
[2016-11-14 14:26] VITALS: TEMP 36.9; Ht 170.2 cm; Wt 66.9 kg
--- NOTE | 2016-11-14 15:02 | EMERGENCY ROOM VISIT NOTE ---
History Report prepared by Scribe: Silva Rosen Under the Supervision of: Dr. Ezequiel Chakraborty M.D. First contact with patient: 14:33 Chief Complaint: HEADACHE Stated Complaint: BOX AND TEXT BOOKS FELL ON HEAD AND NECK,DIZZY History of Present Illness The patient is a 31 year old white female with a limited past medical history who presents to the ED with a cc of a headache beginning 5 days CHEESEMAKER. Positive neck pain, nausea, dizziness. Negative LOC, numbness or weakness in her head or neck. She reports she is in the middle of moving and a box of textbooks fell on her head while she was packing things up. She rates her discomfort as a 6/10 in severity. Tylenol and Advil have provided minimal relief. She reports was initially dazed after the incident, but never passed out. She has been eating and drinking normally. She is still urinating and moving her bowels normally. Source of History: patient Onset: 5 days CHEESEMAKER Position: head Symptom Intensity: 6/10 Timing: worsening Modifying Factors (Relieving): ibuprofen, other (Acetaminophen) Associated Symptoms: + neck pain, + nausea, No LOC, No weakness (in head or neck), No numbness (in head or neck) Review of Systems See HPI for pertinent positives and negatives. A total of ten systems were reviewed and were otherwise negative. Past Medical & Surgical Medical Problems: (1) 39 weeks gestation of (2) Amniotic fluid leaking (3) Anxiety (4) Celiac disease (5) Cyst of ovary (6) Depression (7) Gastroesophageal reflux disease (8) History of maternal fourth degree perineal laceration, currently in third trimester (9) Laparoscopy (10) Migraine Family History Hypertension Social History Smoking Status: Former Smoker Alcohol Use: none Drug Use: none Marital Status: in relationship Housing Status: lives with family Occupation Status: employed Current/Historical Medications Scheduled PRN Acetaminophen (Tylenol), 1,000 MG PO Q6 PRN for Headache Ibuprofen (Advil), 400 MG PO Q6 PRN for Headache Allergies Coded Allergies: Penicillins (Verified Allergy, Intermediate, HIVES, 07/14/16) Amoxicillin (Verified Allergy, Mild, HIVES, 07/14/16) Gluten (Verified Allergy, Unknown, CELIAC'S DISEASE, 07/14/16) MIGRAINES, N/V, BODY ACHES, FATIGUE Sulfa Antibiotics (Verified Allergy, Unknown, HIVES, 07/14/16) Sulfamethoxazole w/Trimethoprim (Verified Allergy, Unknown, HIVES, 07/14/16 ) Physical Exam Vital Signs Date Time Temp Pulse Resp B/P (MAP) Pulse Ox O2 Delivery O2 Flow Rate FiO2 11/14/16 17:03 65 18 118/60 96 11/14/16 16:00 61 18 111/54 95 Room Air 11/14/16 14:26 36.9 98 16 124/85 98 Room Air Physical Exam GENERAL: Awake, alert, well-appearing, NAD HENT: Normocephalic, atraumatic. EYES: Normal conjunctiva. Sclera non-icteric. NECK: Supple. No nuchal rigidity. FROM. RESPIRATORY: CTAB, no rhonchi, wheezing, crackles CARDIAC: RRR, no MRG ABDOMEN: Soft, NTND, BS+ MSK: Right sided paraspinal tend to palpation, some mild pain lateral and right to the occiput without any hematoma or ecchymosis, mild right superior shoulder tend with trace ecchymosis. NV intact distally. No chest wall TTP, no LE edema NEURO: GCS 15, CN 2-12 intact, moves all 4s on command, PERRL, 5/5 UE an LE strength, good finger to nose, no drift, no sensory deficit. SKIN: No rash or jaundice noted. Medical Decision & Procedures Medications Administered Medications (Trade) Dose Ordered Sig/Eladio Route Start Time Stop Time Status Last Admin Dose Admin Sodium Chloride 1,000 ml @ 999 mls/hr Q1H1M STAT IV 11/14/16 15:03 11/14/16 16:03 DC 11/14/16 15:27 999 MLS/HR Ketorolac Tromethamine (Toradol Inj) 30 mg NOW STAT IV 11/14/16 15:03 11/14/16 15:05 DC 11/14/16 15:28 30 MG Metoclopramide HCl (Reglan Inj) 10 mg NOW STAT IV 11/14/16 15:03 11/14/16 15:05 DC 11/14/16 15:29 10 MG Diphenhydramine HCl (Benadryl Inj) 50 mg NOW STAT IV 11/14/16 15:03 11/14/16 15:05 DC 11/14/16 15:28 50 MG ED Course 1451: The patient was evaluated in room A9. A complete history and physical exam was performed. 1503: Benadryl 50 mg IV, Reglan 10 mg IV, Toradol 30 mg IV, NSS 1000 ml @ 999 mls/hr IV. 1620: I reevaluated the patient. She is feeling well and resting comfortably. I discussed her results and discharge instructions and she verbalized complete understanding and agreement. Medical Decision The patient is a 31 year old white female with a limited past medical history who presents to the ED with a cc of a headache beginning 5 days CHEESEMAKER. Positive neck pain, nausea, dizziness. Negative LOC, numbness or weakness in her head or neck. Triage Nursing notes reviewed. The patient's presentation and history were concerning for strain, sprain, concussion, headache and migraine. Patient was seen and evaluated at the bedside. 31-year-old who complains of more persistent prolonged headache not amenable to at-home treatment with Tylenol and/or Motrin. Patient denies any vision changes and denies any neuro deficits. Patient does not take any blood thinning medications. Patient states that he was approximately 40-50 pound box of books that struck her from approximately 3-4 feet. Patient denied any LOC. Patient does not meet any CT Malian criteria. Less likely ICH. Patient is NEXUS negative. Patient has no focal deficits. Patient was given symptomatic relief. Patient's pain improved. Patient was feeling much improved. Patient was able tolerate by mouth and ambulate w/o issue. Patient was given strict follow-up, discharge, return precautions. Patient agreeable plan of care patient was safely discharged home. Medication Reconcilliation Current Medication List: was personally reviewed by me Blood Pressure Screening Patient's blood pressure: Normal blood pressure Blood pressure disposition: Did not require urgent referral Impression Primary Impression: Headache Scribe Attestation The scribe's documentation has been prepared under my direction and personally reviewed by me in its entirety. I confirm that the note above accurately reflects all work, treatment, procedures, and medical decision making performed by me. Departure Information Dispostion Home / Self-Care Referrals Guerita Roe DO (PCP) [facility] Patient Instructions Headache Pain, My [facility] Additional Instructions Please return to the emergency department if you have worsening or recurrent symptoms not amenable to at-home treatment. Please call for a follow-up appointment with her primary care physician. Please take your medications as prescribed. If you have other concerns and/or complaints please feel free to also call your primary care physician's office or return the ED for further evaluation, management, and treatment. You may take 600 mg Ibuprofen every 6 hours as needed for pain with food for no more than 2 consecutive days. You may take tylenol 1000mg every 6 hours as needed for pain. You may take motrin and tylenol separately or at the same time. You have been examined and treated today on an emergency basis only. This is not a substitute for, or an effort to provide, complete comprehensive medical care. It is impossible to recognize and treat all injuries or illnesses in a single emergency department visit. It is therefore important that you follow up closely with [facility]. Call as soon as possible for an appointment. Thank you for your time and consideration. I look forward to speaking with you again soon. Please don't hesitate to call us if you have any questions. Work Instructions Return To Work: 1 day Problem Qualifiers Primary Impression: Headache Headache type: post-traumatic Headache chronicity pattern: unspecified pattern Intractability: not intractable Qualified Codes: G44.309 - Post- traumatic headache, unspecified, not intractable
[2016-11-14] MEDS ORDERED: DiphenhydrAMINE HCL 50 MG/ML VIAL IV STA (15:03)
[2016-11-14] MEDS ORDERED: SODIUM CHLORIDE 0.9% 1000ML 1,000 ML IV STA (15:03)
[2016-11-14] MEDS ORDERED: KETOROLAC TROMETHAMINE 30 MG/ML VIAL IV STA (15:03)
[2016-11-14] MEDS ORDERED: METOCLOPRAMIDE HCL INJ 5 MG/ML 2 ML VIAL IV STA (15:03)
[2016-11-14] MEDS ORDERED: ACET-1256 PO (15:24)
[2016-11-14] MEDS ORDERED: IBUP-1050 PO (15:24)
[2016-11-14 17:03] VITALS: BP 118/60; PULSE 65; O2SAT 96
== END 2016-11-14 17:00 | disposition home or self-care (01) ==
LOC: C.EDB 14:24 → C.EDA 17:00
DX: R51 Headache (principal); F41.9 Anxiety disorder, unspecified; N83.209 Unspecified ovarian cyst, unspecified side; F32.9 Major depressive disorder, single episode, unspecified; K21.9 Gastro-esophageal reflux disease without esophagitis; K90.0 Celiac disease; Z87.891 Personal history of nicotine dependence; Z88.0 Allergy status to penicillin; Z88.1 Allergy status to other antibiotic agents; Z88.2 Allergy status to sulfonamides; Z88.8 Allergy status to other drugs, medicaments and biological substances; Z82.49 Family history of ischemic heart disease and other diseases of the circulatory system

== ENCOUNTER 2020-08-19 11:01 | Inpatient (IN) ==
[2020-08-19] MEDS ORDERED: MoRPHine SULFATE 10 MG/ML CARP/VIAL IV STA (11:24)
[2020-08-19] MEDS ORDERED: SODIUM CHLORIDE 0.9% 1000ML 2,000 ML IV ONE (11:24)
[2020-08-19] MEDS ORDERED: ONDANSETRON INJ 2 MG/ML 2 ML VIAL IV STA (11:24)
--- NOTE | 2020-08-19 11:28 | Emergency Department Note ---
Impression & Plan Hemoperitoneum, Abdominal pain, Pelvic mass, Leukocytosis ED Provider Note NAME: JYOTI MCDUFFIE AGE: 35 SEX: F : 1985 ARRIVES VIA: Walk-In INFORMANT: Patient ED PROVIDER(S): Akhil Álvarez DO CHIEF COMPLAINT: abdominal pain HPI: Patient is a 35-year-old female who presents the ER for abdominal pain. This started about 14 hours ago. Is located in the right mid belly. Multiple previous abdominal surgeries which include right removal of 1 ovary and on the opposite side she had removal of a tube. She does admit to a previous small bowel obstruction. She has uncontrolled celiac disease. Last menstrual period was 6/7. Pain is constant and 10 out of 10. Admits to nausea vomiting. Has not had any bowel movement or passage of gas since late last night. Denies any dysuria urgency or frequency. No other exacerbating or remitting factors. ROS: See above HPI for pertinent positives & negatives. A total of 10 systems r eviewed and were otherwise negative. PAST MEDICAL HISTORY:See Below PAST SURGICAL HISTORY:See Below FAMILY HISTORY:See Below SOCIAL HISTORY:See Below HOME MEDICATIONS:See Below ALLERGIES:See Below VITALS:See Below PHYSICAL EXAMINATION: GENERAL: Sitting up in bed, alert, moderate distress holding abdomen EYE EXAM: normal conjunctiva. OROPHARYNX: no exudate, no erythema, lips, buccal mucosa, and tongue normal and mucous membranes are moist NECK: supple, no nuchal rigidity, no adenopathy, non-tender LUNGS: Clear to auscultation. Normal chest wall mechanics HEART: no murmurs, S1 normal and S2 normal ABDOMEN: abdomen soft, acutely tender to palpation right mid belly, normo-active bowel sounds, + rebound and guarding UPPER EXTREMITIES: upper extremities are grossly normal. LOWER EXTREMITIES: No pitting edema. NEURO EXAM: Normal sensorium, cranial nerves II-XII grossly intact, normal speech, no gross weakness of arms, no gross weakness of legs. MEDICAL DECISION MAKING: Patient is a 35-year-old female who presents ER for severe abdominal pain. IV was established blood was obtained. Patient was found to be tachycardic. Labs show hemoglobin of 8.5 down from baseline of what appears to be 13. There is a leukocytosis of 20,000. BMP with mild hyponatremia. LFTs bilirubin and lipase is unremarkable. Covid was negative. was negative. Patient was typed and crossed given 1 unit of uncrossed PRBCs with a heart rate elevated in the 120s and hemoglobin of [address] which showed a large hemoperitoneum and pelvic mass. Patient was updated bedside and taken emergently to the OR. She was monitored in the ER for a total of about 3 hours for obtaining diagnosis and waiting for OR. Triage Nursing notes reviewed. Limited review of prior medical records performed Vital Signs: reviewed and remarkable for tachy Differential diagnosis: Differential diagnoses includes but is not limited to gastritis, peptic ulcer disease, GERD, gallbladder disease, pancreatitis, small bowel obstruction, acute coronary syndrome, pericarditis, ischemic bowel, irritable bowel disease, irritable bowel syndrome, appendicitis, diverticulitis, malignancy, hernia, urinary tract infection, torsion, /ectopic (if female), perforation, trauma, infectious. ER treatment provided: See below Diagnostics interpreted by me: ECG: none Cardiac Monitoring: An order was placed for continuous cardiac monitoring. The monitor shows a rate of 110 with sinus rhythm. Laboratory studies: As stated above and show below. Imaging studies: CT abdomen pelvis shows a large mass in the lower pelvis with surrounding hemorrhage and a large amount of hemoperitoneum Consultation(s): Discussed with Dr. Ravin Villagomez who presented to bedside and evaluate the patient took to the OR Procedures: none Critical Care: I have personally spent 75 minutes of critical care time in the direct management of this patient. This includes bedside care, interpretation of diagnostic studies, and testing, discussion with consultants, patient, and family members, and other required patient management activities. This 75 minutes is in excess of all separately billable procedures. Past Med/Surg History Social History Smoking Status: Former smoker Tobacco Type: Cigarettes Preferred Language: Ukrainian Feels Safe at Home: Yes Allergies Allergies Allergy/AdvReac Type Severity Reaction Status Date / Time Penicillins Allergy Intermediate HIVES Verified 08/19/20 13:34 amoxicillin Allergy Mild HIVES Verified 08/19/20 13:34 Bactrim Allergy Unknown HIVES Verified 07/14/16 13:25 gluten Allergy Unknown CELIAC'S Verified 08/19/20 13:34 DISEASE Sulfa (Sulfonamide Allergy Unknown HIVES Verified 08/19/20 13:34 Antibiotics) sulfamethoxazole [Bactrim] Allergy Unknown HIVES Verified 08/19/20 13:34 trimethoprim [Bactrim] Allergy Unknown HIVES Verified 08/19/20 13:34 Home Meds Home Medications Medication Instructions Recorded Confirmed acetaminophen [Tylenol Extra 500 mg PO Q6H PRN 08/19/20 08/19/20 Strength] cholecalciferol (vitamin D3) 125 mcg PO QAM 08/19/20 08/19/20 [Vitamin D3] diphenhydramine HCl [Benadryl] 25 mg PO HS 08/19/20 08/19/20 vitamin B complex [Super B Complex] 1 tab PO QAM 08/19/20 08/19/20 Results & Data (ED) Vital Signs Vital Signs - 24 hr 08/19/20 11:08 08/19/20 11:29 08/19/20 11:30 Temperature 36.8 C Temperature Source Temporal Artery Scan Pulse Rate 119 H 120 H 120 H Pulse Rate from SpO2 Sensor Respiratory Rate 18 15 19 Respiratory Effort / Characteristics Non-Labored Spontaneous Respiratory Depth Normal Respiratory Pattern Regular Blood Pressure 104/72 Blood Pressure Mean 82 Blood Pressure Position Sitting Pulse Oximetry 99 Oxygen Delivery Method Room Air Sepsis Recent Fever Within 48 Hours No Sepsis New/Unexplained Change in Mental Status N/A Sepsis Action Taken by Nursing No Action Required 08/19/20 11:34 08/19/20 11:35 08/19/20 12:15 Temperature Temperature Source Pulse Rate 109 H 105 H Pulse Rate from SpO2 Sensor Respiratory Rate 19 30 H Respiratory Effort / Characteristics Respiratory Depth Respiratory Pattern Blood Pressure 138/95 Blood Pressure Mean 109 Blood Pressure Position Pulse Oximetry 98 Oxygen Delivery Method Room Air Sepsis Recent Fever Within 48 Hours Sepsis New/Unexplained Change in Mental Status Sepsis Action Taken by Nursing 08/19/20 12:28 08/19/20 12:30 08/19/20 12:53 Temperature Temperature Source Pulse Rate 111 H 104 H 99 H Pulse Rate from SpO2 Sensor Respiratory Rate 22 19 16 Respiratory Effort / Characteristics Respiratory Depth Respiratory Pattern Blood Pressure 121/96 140/73 Blood Pressure Mean 104 95 Blood Pressure Position Pulse Oximetry Oxygen Delivery Method Sepsis Recent Fever Within 48 Hours Sepsis New/Unexplained Change in Mental Status Sepsis Action Taken by Nursing 08/19/20 13:00 08/19/20 13:01 08/19/20 13:05 Temperature 36.8 C Temperature Source Oral Pulse Rate 103 H 101 H 101 H Pulse Rate from SpO2 Sensor 101 H 101 H Respiratory Rate 22 22 21 Respiratory Effort / Characteristics Respiratory Depth Respiratory Pattern Blood Pressure 132/70 146/81 H Blood Pressure Mean 90 102 Blood Pressure Position Pulse Oximetry 100 100 Oxygen Delivery Method Sepsis Recent Fever Within 48 Hours Sepsis New/Unexplained Change in Mental Status Sepsis Action Taken by Nursing 08/19/20 13:10 08/19/20 13:14 08/19/20 13:15 Temperature 36.7 C Temperature Source Oral Oral Pulse Rate 94 H 98 H 98 H Pulse Rate from SpO2 Sensor 98 H Respiratory Rate 18 20 18 Respiratory Effort / Characteristics Respiratory Depth Respiratory Pattern Blood Pressure 129/103 H 129/103 H 138/69 Blood Pressure Mean 111 111 92 Blood Pressure Position Pulse Oximetry 99 99 98 Oxygen Delivery Method Sepsis Recent Fever Within 48 Hours Sepsis New/Unexplained Change in Mental Status Sepsis Action Taken by Nursing 08/19/20 13:16 08/19/20 13:17 08/19/20 13:20 Temperature 36.8 C Temperature Source Oral Pulse Rate 98 H 97 H 97 H Pulse Rate from SpO2 Sensor 100 H 97 H Respiratory Rate 25 H 19 18 Respiratory Effort / Characteristics Respiratory Depth Respiratory Pattern Blood Pressure 138/69 158/81 H Blood Pressure Mean 92 106 Blood Pressure Position Pulse Oximetry 99 98 99 Oxygen Delivery Method Sepsis Recent Fever Within 48 Hours Sepsis New/Unexplained Change in Mental Status Sepsis Action Taken by Nursing 08/19/20 13:24 08/19/20 13:30 08/19/20 13:31 Temperature Temperature Source Pulse Rate 100 H 91 H 92 H Pulse Rate from SpO2 Sensor 98 H 92 H 93 H Respiratory Rate 19 16 17 Respiratory Effort / Characteristics Respiratory Depth Respiratory Pattern Blood Pressure 158/81 H 151/84 H Blood Pressure Mean 106 106 Blood Pressure Position Pulse Oximetry 100 99 99 Oxygen Delivery Method Sepsis Recent Fever Within 48 Hours Sepsis New/Unexplained Change in Mental Status Sepsis Action Taken by Nursing 08/19/20 13:45 08/19/20 13:46 08/19/20 14:00 Temperature 36.9 C Temperature Source Oral Pulse Rate 90 90 86 Pulse Rate from SpO2 Sensor 90 86 Respiratory Rate 17 15 18 Respiratory Effort / Characteristics Respiratory Depth Respiratory Pattern Blood Pressure 131/68 131/68 Blood Pressure Mean 89 89 Blood Pressure Position Pulse Oximetry 99 99 99 Oxygen Delivery Method Sepsis Recent Fever Within 48 Hours Sepsis New/Unexplained Change in Mental Status Sepsis Action Taken by Nursing 08/19/20 14:01 Temperature Temperature Source Pulse Rate 91 H Pulse Rate from SpO2 Sensor 92 H Respiratory Rate 20 Respiratory Effort / Characteristics Respiratory Depth Respiratory Pattern Blood Pressure 174/55 H Blood Pressure Mean 94 Blood Pressure Position Pulse Oximetry 99 Oxygen Delivery Method Sepsis Recent Fever Within 48 Hours Sepsis New/Unexplained Change in Mental Status Sepsis Action Taken by Nursing Laboratory Data Result diagrams: 08/19/20 11:20 08/19/20 11:20 Lab Results 08/19/20 08/19/20 08/19/20 Range/Units 11:20 11:20 11:30 WBC 19.98 H (4.8-10.8) K/uL RBC 4.08 L (4.2-5.4) M/uL Hgb 8.5 L (12.0-16.0) g/dL POC Hgb 9.9 L (12.0-16.0) g/dl Hct 26.9 L (37-47) % POC Hct 29 L (37-47) % MCV 65.9 L (80-100) fL MCH 20.8 L (25-34) pg MCHC 31.6 L (32-36) g/dL RDW Std Deviation 37.8 (36.4-46.3) fL RDW Coeff of Renetta 15.7 H (11.5-14.5) % Plt Count 352 (130-400) K/uL MPV 11.6 H (7.4-10.4) fL Immature Gran % (Auto) 0.4 % Neut % (Auto) 88.7 % Lymph % (Auto) 7.9 % [place] % (Auto) 3.0 % Eos % (Auto) 0.0 % Baso % (Auto) 0.0 % Neut # (Auto) 17.73 H (1.4-6.5) K/uL Lymph # (Auto) 1.57 (1.2-3.4) K/uL [place] # (Auto) 0.60 H (0.11-0.59) K/uL Eos # (Auto) 0.00 (0-0.5) K/uL Baso # (Auto) 0.00 (0-0.2) K/uL Immature Gran # (Auto) 0.08 H (0.00-0.02) K/uL Hypochromasia Present Microcytosis Present Ovalocytes 1+ POC Sodium 135 (135-144) mmol/L Sodium 134 L (136-145) mmol/L POC Potassium 3.6 (3.3-5.0) mmol/L Potassium 3.7 (3.5-5.1) mmol/L POC Chloride 100 L (101-112) mmol/L Chloride 104 (98-107) mmol/L Carbon Dioxide 23 (21-32) mmol/L POC Total CO2 21 L (24-31) mmol/L Anion Gap 8.0 (3-11) POC Anion Gap 18.0 (16-25) mmol/L POC BUN 12 (7-18) mg/dl BUN 14 (7-18) mg/dl Creatinine 0.71 (0.6-1.2) mg/dl POC Creatinine 0.5 L (0.6-1.3) mg/dl Est Cr Clr Drug Dosing Not Reportable Est GFR ( Amer) 127.0 ml/min Est GFR (Non-Af Amer) 109.6 ml/min BUN/Creatinine Ratio 19.0 (10-20) Glucose 123 H (70-99) mg/dl POC Glucose (other) 125 H (70-99) mg/dl Calcium 8.7 (8.5-10.1) mg/dl POC Ioniz Calcium Daniel 1.20 (1.12-1.32) mmol/l Total Bilirubin 0.3 (0.2-1) mg/dl AST 14 L (15-37) U/L ALT 18 (12-78) U/L Alkaline Phosphatase 45 (45-117) U/L Total Protein 7.1 (6.4-8.2) gm/dl Albumin 3.6 (3.4-5.0) gm/dl Globulin 3.5 (2.5-4.0) gm/dl Albumin/Globulin Ratio 1.0 (0.9-2) Lipase 51 L (73-393) U/L COVID-19 Eval Order SARS-CoV-2 (PCR) (Negative) Blood Type Antibody Screen Crossmatch 08/19/20 08/19/20 08/19/20 Range/Units 12:30 12:30 12:41 WBC (4.8-10.8) K/uL RBC (4.2-5.4) M/uL Hgb (12.0-16.0) g/dL POC Hgb (12.0-16.0) g/dl Hct (37-47) % POC Hct (37-47) % MCV (80-100) fL MCH (25-34) pg MCHC (32-36) g/dL RDW Std Deviation (36.4-46.3) fL RDW Coeff of Renetta (11.5-14.5) % Plt Count (130-400) K/uL MPV (7.4-10.4) fL Immature Gran % (Auto) % Neut % (Auto) % Lymph % (Auto) % [place] % (Auto) % Eos % (Auto) % Baso % (Auto) % Neut # (Auto) (1.4-6.5) K/uL Lymph # (Auto) (1.2-3.4) K/uL [place] # (Auto) (0.11-0.59) K/uL Eos # (Auto) (0-0.5) K/uL Baso # (Auto) (0-0.2) K/uL Immature Gran # (Auto) (0.00-0.02) K/uL Hypochromasia Microcytosis Ovalocytes POC Sodium (135-144) mmol/L Sodium (136-145) mmol/L POC Potassium (3.3-5.0) mmol/L Potassium (3.5-5.1) mmol/L POC Chloride (101-112) mmol/L Chloride (98-107) mmol/L Carbon Dioxide (21-32) mmol/L POC Total CO2 (24-31) mmol/L Anion Gap (3-11) POC Anion Gap (16-25) mmol/L POC BUN (7-18) mg/dl BUN (7-18) mg/dl Creatinine (0.6-1.2) mg/dl POC Creatinine (0.6-1.3) mg/dl Est Cr Clr Drug Dosing Est GFR ( Amer) ml/min Est GFR (Non-Af Amer) ml/min BUN/Creatinine Ratio (10-20) Glucose (70-99) mg/dl POC Glucose (other) (70-99) mg/dl Calcium (8.5-10.1) mg/dl POC Ioniz Calcium Daniel (1.12-1.32) mmol/l Total Bilirubin (0.2-1) mg/dl AST (15-37) U/L ALT (12-78) U/L Alkaline Phosphatase (45-117) U/L Total Protein (6.4-8.2) gm/dl Albumin (3.4-5.0) gm/dl Globulin (2.5-4.0) gm/dl Albumin/Globulin Ratio (0.9-2) Lipase (73-393) U/L COVID-19 Eval Order Covid19 at [facility] SARS-CoV-2 (PCR) NEGATIVE (Negative) Blood Type Cancelled Antibody Screen Cancelled Crossmatch See Detail 08/19/20 Range/Units 12:41 WBC (4.8-10.8) K/uL RBC (4.2-5.4) M/uL Hgb (12.0-16.0) g/dL POC Hgb (12.0-16.0) g/dl Hct (37-47) % POC Hct (37-47) % MCV (80-100) fL MCH (25-34) pg MCHC (32-36) g/dL RDW Std Deviation (36.4-46.3) fL RDW Coeff of Renetta (11.5-14.5) % Plt Count (130-400) K/uL MPV (7.4-10.4) fL Immature Gran % (Auto) % Neut % (Auto) % Lymph % (Auto) % [place] % (Auto) % Eos % (Auto) % Baso % (Auto) % Neut # (Auto) (1.4-6.5) K/uL Lymph # (Auto) (1.2-3.4) K/uL [place] # (Auto) (0.11-0.59) K/uL Eos # (Auto) (0-0.5) K/uL Baso # (Auto) (0-0.2) K/uL Immature Gran # (Auto) (0.00-0.02) K/uL Hypochromasia Microcytosis Ovalocytes POC Sodium (135-144) mmol/L Sodium (136-145) mmol/L POC Potassium (3.3-5.0) mmol/L Potassium (3.5-5.1) mmol/L POC Chloride (101-112) mmol/L Chloride (98-107) mmol/L Carbon Dioxide (21-32) mmol/L POC Total CO2 (24-31) mmol/L Anion Gap (3-11) POC Anion Gap (16-25) mmol/L POC BUN (7-18) mg/dl BUN (7-18) mg/dl Creatinine (0.6-1.2) mg/dl POC Creatinine (0.6-1.3) mg/dl Est Cr Clr Drug Dosing Est GFR ( Amer) ml/min Est GFR (Non-Af Amer) ml/min BUN/Creatinine Ratio (10-20) Glucose (70-99) mg/dl POC Glucose (other) (70-99) mg/dl Calcium (8.5-10.1) mg/dl POC Ioniz Calcium Daniel (1.12-1.32) mmol/l Total Bilirubin (0.2-1) mg/dl AST (15-37) U/L ALT (12-78) U/L Alkaline Phosphatase (45-117) U/L Total Protein (6.4-8.2) gm/dl Albumin (3.4-5.0) gm/dl Globulin (2.5-4.0) gm/dl Albumin/Globulin Ratio (0.9-2) Lipase (73-393) U/L COVID-19 Eval Order SARS-CoV-2 (PCR) (Negative) Blood Type O Negative Antibody Screen NEGATIVE Crossmatch See Detail Administered Medications Discontinued Medications Hydromorphone HCl (Hydromorphone Inj 1 Mg/Ml Syringe) 1 mg IV NOW STA Stop: 08/19/20 12:11 Last Admin: 08/19/20 12:14 Dose: 1 mg Documented by: [id number] Hydromorphone HCl (Hydromorphone Inj 1 Mg/Ml Syringe) 1 mg IV NOW STA Stop: 08/19/20 13:16 Last Admin: 08/19/20 13:18 Dose: 1 mg Documented by: [id number] Sodium Chloride (Nss 1000ml) 2,000 mls @ 999 mls/hr IV .Q2H1M ONE Stop: 08/19/20 13:24 Last Admin: 08/19/20 11:31 Dose: 999 mls/hr Documented by: [id number] Ceftriaxone Sodium (Rocephin) 1,000 mg in 50 mls @ 100 mls/hr IV NOW STA Stop: 08/19/20 13:04 Last Infusion: 08/19/20 13:24 Dose: 0 mls/hr Documented by: [id number] Admin: 08/19/20 12:45 Dose: 100 mls/hr Documented by: [id number] Metronidazole (Flagyl) 500 mg in 100 mls @ 100 mls/hr IV NOW STA Stop: 08/19/20 13:34 Last Admin: 08/19/20 12:45 Dose: 100 mls/hr Documented by: [id number] Ioversol (Optiray 320 100ml) 93 ml IV ONCE ONE Stop: 08/19/20 12:07 Last Admin: 08/19/20 12:08 Dose: 93 ml Documented by: [id number] Morphine Sulfate (Morphine Sulfate 10 Mg/Ml Carp/Vial) 6 mg IV NOW STA Stop: 08/19/20 11:25 Last Admin: 08/19/20 11:31 Dose: 6 mg Documented by: [id number] Ondansetron HCl (Ondansetron Inj 2 Mg/Ml 2 Ml Vial) 4 mg IV NOW STA Stop: 08/19/20 11:25 Last Admin: 08/19/20 11:31 Dose: 4 mg Documented by: [id number] Imaging Data Radiologist's Impression: Abdomen/Pelvis CT 08/19/20 11:[address] WITH IV CONTRAST CT DOSE: 478.33 mGy.cm HISTORY: Right lower quadrant abdominal pain. TECHNIQUE: Multiaxial CT images of the abdomen and pelvis were performed fo llowing the use of intravenous contrast. A dose lowering technique was utilized adhering to the principles of ALARA. COMPARISON STUDY: Abdomen and pelvis CT 05/17/2012. FINDINGS: The lung bases are clear. No pneumoperitoneum. No pneumatosis. No frac tures within the visualized osseous structures. The liver, gallbladder, spleen, adrenal glands, pancreas, and kidneys are unremarkable. The main portal vein is patent. No retroperitoneal lymphadenopathy. Normal caliber abdominal aorta. Normal bladder. The uterus and left ovary. Within normal limits. There is a large solid and cystic heterogeneously enhancing lesion within the right deep pelvis which is likely associated with the right ovary. This contains a central cystic focus which measures 7.4 cm. This small cystic focus contains a small collection of calcific densities. There is surrounding enhancing heterogeneous soft tissue. This total lesion measures approximately 14 x 9 cm and is either within or adjacent to the right ovary. The central cystic focus with punctate calcifications could represent ectopic . There is a moderate amount of hemoperitoneum seen within the pelvis and abdomen. No bowel wall thickening or obstruction. The visualized appendix is unremarkable. IMPRESSION: 1. A 14 x 9 cm heterogeneous lesion within the right lower quadrant which is either within or adjacent to the right ovary. There is associated moderate hemoperitoneum. This could represent an ovarian hemorrhagic cyst, ovarian mass, possibly an ectopic . 2. No bowel wall thickening or obstruction. 3. The visualized appendix is unremarkable. 4. These findings were discussed with Dr. Álvarez at 12:26 PM on 08/19/2020. ACT 112: Negative or not required by law. Electronically signed by: Nate Alanis M.D. 08/19/2020 12:28 PM Discharge Plan Visit Data Chief Complaint: Abdominal Pain Stated Complaint: SEVERE ABD PAIN FOR ABOUT 14 HOURS ED Provider: Akhil Álvarez Discharge Problem: Hemoperitoneum, Abdominal pain, Pelvic mass, Leukocytosis Forms Stand Alone Forms: [facility] Prescriptions Prescriptions: No Action acetaminophen [Tylenol Extra Strength] 500 mg Tablet 500 mg PO Q6H PRN (Reason: Pain) RF: 0 diphenhydramine HCl [Benadryl] 25 mg Capsule 25 mg PO HS RF: 0 vitamin B complex [Super B Complex] Tablet 1 tab PO QAM RF: 0 cholecalciferol (vitamin D3) [Vitamin D3] 125 mcg (5,000 unit) Tablet 125 mcg PO QAM RF: 0 Discharge Problem: Abdominal pain Qualifiers: Abdominal location: unspecified location Qualified Code(s): R10.9 - Unspecified abdominal pain Leukocytosis Qualifiers: Leukocytosis type: unspecified Qualified Code(s): D72.829 - Elevated white blood cell count, unspecified
[2020-08-19 11:37] LABS: Hematocrit (blood only) 26.9 % (37-47); Hemoglobin 8.5 g/dL (12.0-16.0); Immature Granulocytes # (auto) 0.08 K/uL (0.00-0.02); Immature Granulocytes % (auto) 0.4 %; Lymphocytes # (auto) 1.57 K/uL (1.2-3.4); Lymphocytes % (auto) 7.9 %; Mean Corpuscular Hemoglobin 20.8 pg (25-34); Mean Corpuscular Hgb Conc 31.6 g/dL (32-36); Mean Corpuscular Volume 65.9 fL (80-100); Mean Platelet Volume 11.6 fL (7.4-10.4); Neutrophils # (auto) 17.73 K/uL (1.4-6.5); Neutrophils % (auto) 88.7 %; Platelet Count 352 K/uL (130-400); RDW Coefficient of Variation 15.7 % (11.5-14.5); RDW Standard Deviation 37.8 fL (36.4-46.3); Red Blood Count 4.08 M/uL (4.2-5.4); White Blood Count 19.98 K/uL (4.8-10.8)
[2020-08-19 11:50] LABS: iSTAT Creatinine 0.5 mg/dl (0.6-1.3); iSTAT Hemoglobin 9.9 g/dl (12.0-16.0); iSTAT Ionized Calcium 1.2 mmol/l (1.12-1.32); iSTAT Potassium 3.6 mmol/L (3.3-5.0)
[2020-08-19 11:53] LABS: Hypochromasia Present; Microcytosis Present; Ovalocytes 1+
[2020-08-19 12:01] LABS: Alanine Aminotransferase 18 U/L (12-78); Albumin Level 3.6 gm/dl (3.4-5.0); Alkaline Phosphatase 45 U/L (45-117); Aspartate Aminotransferase 14 U/L (15-37); Bilirubin,Total 0.3 mg/dl (0.2-1); Blood Urea Nitrogen 14 mg/dl (7-18); Calcium 8.7 mg/dl (8.5-10.1); Carbon Dioxide 23 mmol/L (21-32); Chloride 104 mmol/L (98-107); Est GFR (Non-African American) 109.6 ml/min; Globulin 3.5 gm/dl (2.5-4.0); Glucose 123 mg/dl (70-99); Lipase 51 U/L (73-393); Potassium 3.7 mmol/L (3.5-5.1); Sodium 134 mmol/L (136-145); Total Protein 7.1 gm/dl (6.4-8.2)
[2020-08-19] MEDS ORDERED: OPTIRAY 320 100ml IV ONE (12:06)
[2020-08-19] MEDS ORDERED: HYDROmorphone INJ 1 MG/ML SYRINGE IV STA ×2 (12:10→13:15)
--- NOTE | 2020-08-19 12:30 | CT Scan Report ---
ABDOMEN AND PELVIS CT WITH IV CONTRAST CT DOSE: 478.33 mGy.cm HISTORY: Right lower quadrant abdominal pain. TECHNIQUE: Multiaxial CT images of the abdomen and pelvis were performed following the use of intrave nous contrast. A dose lowering technique was utilized adhering to the principles of ALARA. COMPARISON STUDY: Abdomen and pelvis CT 05/17/2012. FINDINGS: The lung bases are clear. No pneumoperitoneum. No pneumatosis. No fractures within the visu alized osseous structures. The liver, gallbladder, spleen, adrenal glands, pancreas, and kidneys are unremarkable. The main portal vein is patent. No retroperitoneal lymphadenopathy. Normal caliber abdo kiki aorta. Normal bladder. The uterus and left ovary. Within normal limits. There is a large solid and cystic heterogeneously enhancing lesion within the right deep pelvis which is likely associated w ith the right ovary. This contains a central cystic focus which measures 7.4 cm. This small cystic fo cus contains a small collection of calcific densities. There is surrounding enhancing heterogeneous s oft tissue. This total lesion measures approximately 14 x 9 cm and is either within or adjacent to th e right ovary. The central cystic focus with punctate calcifications could represent ectopic pregnanc y. There is a moderate amount of hemoperitoneum seen within the pelvis and abdomen. No bowel wall thi ckening or obstruction. The visualized appendix is unremarkable. IMPRESSION: 1. A 14 x 9 cm heterogeneous lesion within the right lower quadrant which is either within or adjacen t to the right ovary. There is associated moderate hemoperitoneum. This could represent an ovarian he morrhagic cyst, ovarian mass, possibly an ectopic . 2. No bowel wall thickening or obstruction. 3. The visualized appendix is unremarkable. 4. These findings were discussed with Dr. Álvarez at 12:26 PM on 08/19/2020. ACT 112: Negative or not required by law. Electronically signed by: Nate Alanis M.D. 08/19/2020 12:28 PM
[2020-08-19] MEDS ORDERED: SODIUM CHLORIDE 0.9% 250 ML IV PRN (12:33)
[2020-08-19] MEDS ORDERED: cefTRIAXone SODIUM 1,000 MG/50 ML BAG IV STA (12:35)
[2020-08-19] MEDS ORDERED: metroNIDAZOLE 500 MG/100 ML BAG IV STA (12:35)
--- NOTE | 2020-08-19 13:43 | OB/GYN Consultation ---
Date of Consultation August 19, 2020 Assessment & Plan (1) Acute pelvic pain, female: Andrzej Is a 35-year-old presents for acute onset right lower quadrant abdominal/pelvic pain as noted per HPI. CT scan is notable for a 8 x 14 right adnexal mass concerning for hemorrhagic cyst but may represent a tubo-ovarian abscess or other unknown pelvic mass. Patient is noted to have a prior left oophorectomy and right salpingectomy. Patient has symptoms of an acute abdomen and due to the size of the mass and possibility of ovarian torsion I recommended that we proceed with a diagnostic laparoscopy, possible operative laparoscopy /laparotomy with right ovarian cystectomy, possible right oophorectomy, possible right and/or left salpingectomy, possible excision of pelvic mass, possible cystoscopy. Procedure was reviewed with patient in detail and all questions answered patient's satisfaction. Consents reviewed and signed. (2) Complex cyst of right ovary: History of Present Illness History of Present Illness Andrzej is a 35-year old who presents to the ED today with acute onset right- sided abdominal pelvic pain which started last night around 10:00 p.m.. She reports the pain progressively worsened throughout the night and was unbearable as of this morning. She reports the pain had acute onset which she described as severe and has continued to progressively worsen. Patient underwent a CT scan which showed a right adnexal cystic mass with hemoperitoneum likely representing a hemorrhagic cyst. May also represent a tubo-ovarian abscess or other unclear right adnexal mass. Mass measured 14 x 8 cm. Patient had a white blood cell count which was 19,000, H/H of 8.5/ 26.9. Patient has been afebrile. Allergies Allergy/AdvReac Type Severity Reaction Status Date / Time Penicillins Allergy Intermediate HIVES Verified 08/19/20 13:34 amoxicillin Allergy Mild HIVES Verified 08/19/20 13:34 Bactrim Allergy Unknown HIVES Verified 07/14/16 13:25 gluten Allergy Unknown CELIAC'S Verified 08/19/20 13:34 DISEASE Sulfa (Sulfonamide Allergy Unknown HIVES Verified 08/19/20 13:34 Antibiotics) sulfamethoxazole [Bactrim] Allergy Unknown HIVES Verified 08/19/20 13:34 trimethoprim [Bactrim] Allergy Unknown HIVES Verified 08/19/20 13:34 Home Medications Medication Instructions Recorded Confirmed Type acetaminophen [Tylenol Extra 500 mg PO Q6H PRN 08/19/20 08/19/20 History Strength] cholecalciferol (vitamin D3) 125 mcg PO QAM 08/19/20 08/19/20 History [Vitamin D3] diphenhydramine HCl [Benadryl] 25 mg PO HS 08/19/20 08/19/20 History vitamin B complex [Super B Complex] 1 tab PO QAM 08/19/20 08/19/20 History Patient History Social History Smoking Status: Former smoker Tobacco Type: Cigarettes Preferred Language: Serbian Feels Safe at Home: Yes Physical Exam Physical Exam: Remainder of exam by ED staff. Constitutional: WD/WN, vitals as above Respiratory: normal respiratory effort, lungs clear to auscultation Gastrointestinal (Abdomen): Inspection/Auscultation: + abdomen distended Percussion/Palpation: + abdomen tender, + guarding and abdomen soft; abdomen not rigid Psychiatric: A+Ox3, euthymic affect Results & Data ([facility]) Vital Signs (Past 12 Hours) Vital Signs Temp Pulse Resp BP Pulse Ox 08/19/20 13:20 36.8 C 97 H 18 158/81 H 99 08/19/20 13:16 98 H 25 H 138/69 99 08/19/20 13:15 36.7 C 98 H 18 138/69 98 08/19/20 13:14 98 H 20 129/103 H 99 08/19/20 13:10 94 H 18 129/103 H 99 08/19/20 13:05 36.8 C 101 H 21 146/81 H 100 08/19/20 13:01 101 H 22 100 08/19/20 13:00 103 H 22 132/70 08/19/20 12:53 99 H 16 140/73 08/19/20 12:30 104 H 19 08/19/20 12:28 111 H 22 121/96 08/19/20 12:15 105 H 30 H 08/19/20 11:35 109 H 19 138/95 08/19/20 11:34 98 08/19/20 11:30 120 H 19 08/19/20 11:29 120 H 15 08/19/20 11:08 36.8 C 119 H 18 104/72 99 PG Care Time/CCT Total # of Minutes Spent Total Time Spent with Patient: Total time spent is greater than 50% in coordination of care (as documented) at patient's floor/unit and/or counseling patient: Coding Level of Care Code 50144 Office/OBS Consult Lvl 5 Diagnoses Acute pelvic pain, female R10.2 Complex cyst of right ovary N83.291
[2020-08-19] MEDS ORDERED: HYDROmorphone INJ 0.5 MG/0.5 ML SYR IV STA (14:19)
[2020-08-19] MEDS ORDERED: ROCURONIUM BROMIDE 10 MG/ML 5 ML VIAL IV ONE ×6 (14:50→16:37)
[2020-08-19] MEDS ORDERED: PROPOFOL IV EMULSION 10 MG/ML 20 ML VIAL IV ONE (14:50)
[2020-08-19] MEDS ORDERED: SUCCINYLCHOLINE CHLORIDE 20 MG/ML 10 ML VIAL IV ONE (14:50)
[2020-08-19] MEDS ORDERED: fentaNYL citrate 100 MCG/2 ML VIAL ONE ×4 (14:51→19:20)
[2020-08-19] MEDS ORDERED: MIDAZOLAM HCL 1 MG/ML 2ML VIAL ONE (14:51)
[2020-08-19] MEDS ORDERED: BUPIVACAINE 0.5 % 5 MG/1 ML MPF 30ML VIAL ONE (14:58)
--- NOTE | 2020-08-19 15:06 | Anesthesiology Consultation ---
Date of Service August 19, 2020 Assessment & Plan (1) Encounter for pre-operative examination: Chart Review Chart Review: Acceptable Risk for Surgery and Patient NOT seen in Pre Admission Testing Consults Requested none History Surgery Operation Date: 08/19/20 14:00 Proposed Procedures p Laparoscopic Operative - Freddie Villagomez MD Height/Weight Height: 5 ft 7 in Weight: 83.915 kg Allergies Allergy/AdvReac Type Severity Reaction Status Date / Time Penicillins Allergy Intermediate HIVES Verified 08/19/20 13:34 amoxicillin Allergy Mild HIVES Verified 08/19/20 13:34 Bactrim Allergy Unknown HIVES Verified 07/14/16 13:25 gluten Allergy Unknown CELIAC'S Verified 08/19/20 13:34 DISEASE Sulfa (Sulfonamide Allergy Unknown HIVES Verified 08/19/20 13:34 Antibiotics) sulfamethoxazole [Bactrim] Allergy Unknown HIVES Verified 08/19/20 13:34 trimethoprim [Bactrim] Allergy Unknown HIVES Verified 08/19/20 13:34 Medications Home Medications Medication Instructions Recorded Confirmed Last Taken acetaminophen [Tylenol Extra 500 mg PO Q6H PRN 08/19/20 08/19/20 08/19/20 07:00 Strength] 1000 mg cholecalciferol (vitamin D3) 125 mcg PO QAM 08/19/20 08/19/20 08/18/20 [Vitamin D3] diphenhydramine HCl [Benadryl] 25 mg PO HS 08/19/20 08/19/20 08/17/20 vitamin B complex [Super B Complex] 1 tab PO QAM 08/19/20 08/19/20 08/18/20 Past Medical History Medical History Abdominal pain Celiac disease Hemoperitoneum Migraine Superficial thrombosis of right lower extremity Past Surgical History Surgical History History of delivery History of left oophorectomy History of salpingectomy Social History Smoking Status: Former smoker Physical Exam Vital Signs Last Vital Signs Temp 36.8 C 08/19/20 14:45 Pulse 90 08/19/20 14:45 Resp 16 08/19/20 14:45 BP 126/60 08/19/20 14:45 Pulse Ox 100 08/19/20 14:45 Testing Laboratory Results 08/19/20 11:20 08/19/20 11:20 Blood Type Cancelled 08/19/20 12:41 Blood Type O Negative 08/19/20 12:41 Antibody Screen Cancelled 08/19/20 12:41 Antibody Screen NEGATIVE 08/19/20 12:41 08/19/20 11:30 POC Glucose (other) 125 H
[2020-08-19] MEDS ORDERED: SCOPOLAMINE 1 MG TDSY TD ONE (15:26)
[2020-08-19] MEDS ORDERED: PHENYLEPHRINE HCL 10 MG/ML VIAL ONE (16:07)
[2020-08-19] MEDS ORDERED: ONDANSETRON INJ 2 MG/ML 2 ML VIAL ONE ×2 (16:10→19:04)
[2020-08-19] MEDS ORDERED: DEXAMETHASONE SOD INJ 4 MG/ML VIAL ONE (16:10)
[2020-08-19] MEDS ORDERED: LIDOCAINE HCL/D5W 2000 MG/500 ML BAG IV ONE (16:35)
[2020-08-19] MEDS ORDERED: TRANEXAMIC ACID 1,000 MG **IV Intra-op IV STA (17:07)
[2020-08-19] MEDS ORDERED: TRANEXAMIC ACID 100 MG/ML 10 ML VIAL IV SCH (17:15)
[2020-08-19] MEDS ORDERED: KETAMINE 50 MG/5 ML SYRINGE ONE (17:50)
[2020-08-19] MEDS ORDERED: CARBOPROST TROMETHAMINE 250 MCG/ML AMPUL ONE (17:50)
[2020-08-19 18:18] LABS: Hemoglobin 7.1 g/dL (12.0-16.0); Mean Corpuscular Hemoglobin 25.1 pg (25-34); Mean Corpuscular Hgb Conc 32.3 g/dL (32-36); Mean Corpuscular Volume 77.7 fL (80-100); Mean Platelet Volume 11.5 fL (7.4-10.4); Platelet Count 195 K/uL (130-400); RDW Coefficient of Variation 23.2 % (11.5-14.5); RDW Standard Deviation 63.7 fL (36.4-46.3); Red Blood Count 2.83 M/uL (4.2-5.4); White Blood Count 21.33 K/uL (4.8-10.8)
--- NOTE | 2020-08-19 18:26 | XRay Report ---
KUB HISTORY: SPONGE COUNT, EMERGENCY HYSTERECTOMY COMPARISON: KUB 10/27/2015. Abdomen and pelvis CT 08/19/2020. FINDINGS: The bowel gas pattern is unremarkable. There are no dilated loops of small bowel to suggest an obstruction. No renal calculi. No ureteral calculi. No pneumoperitoneum or pneumatosis. Gas with in the lower abdomen consistent with intraoperative changes. No radiopaque foreign bodies to suggest a retained sponge. Nasogastric tube which terminates in the stomach. Stable small calcifications with in the left side of the pelvis. IMPRESSION: 1. No radiopaque foreign bodies within the abdomen or pelvis to suggest a retained sponge. 2. The nasogastric tube terminates in the stomach. ACT 112: Negative or not required by law. Electronically signed by: Nate Alanis M.D. 08/19/2020 6:25 PM
[2020-08-19] MEDS ORDERED: GLYCOPYRROLATE 0.2 MG/ML VIAL ONE (18:28)
[2020-08-19] MEDS ORDERED: NEOSTIGMINE METHYLSULFATE 1 MG/ML 10ML VIAL ONE (18:28)
[2020-08-19 18:34] LABS: Fibrinogen 177 mg/dl (184-400); INR 1.2 (0.9-1.1); Prothrombin Time 11.8 Seconds (9.0-12.0)
--- NOTE | 2020-08-19 18:55 | Post Operative Brief Note ---
PG Immediate Post Op with CF Date of Surgery August 19, 2020 Pre & Post Diagnosis Operation Date: 08/19/20 14:00 Pre-Op Diagnosis: Complex ovarian cyst and pelvic pain Post-Op Diagnosis: Ruptured ectopic cornual I identified the patient and participated in the time-out.: Yes Procedure Operation Date: 08/19/20 14:00 Actual Procedures p Diagnostic laparoscopy, exploratory laparotomy, removal of cornual , cornual rupture repair, right salpingectomy, removal of pneumoperitoneum(Right) - Freddie Villagomez MD Surgeon Freddie Villagomez MD Connie Scratcher Dr Shane Estimated Blood Loss 2,600 (2500 evacuation, 100 surgical) Findings Consistent with Post-Op Diagnosis Specimens Specimen Description: A: Right fallopian tube B: Products of conception Drains Thornton Catheter (Placed by surgeon at 1602)
[2020-08-19] MEDS ORDERED: fentaNYL citrate 100 MCG/2 ML VIAL IV STA ×2 (19:21→19:26)
[2020-08-19] MEDS ORDERED: HYDROmorphone INJ 2 MG/ML SYR/VIAL IV PRN ×2 (19:29→19:57)
[2020-08-19] MEDS ORDERED: PROMETHAZINE HCL 12.5 MG in SODIUM CHLORIDE 0.9% 50 ML IV PRN (19:29)
[2020-08-19] MEDS ORDERED: ATROPINE SULFATE 0.1 MG/ML 10ML SYR IV PRN (19:29)
[2020-08-19] MEDS ORDERED: ePHEDrine sulfate 50 MG/ML AMP IV PRN (19:29)
[2020-08-19] MEDS ORDERED: fentaNYL citrate 100 MCG/2 ML VIAL IV PRN (19:29)
[2020-08-19 19:41] LABS: Basophils # (auto) 0.01 K/uL (0-0.2); Basophils % (auto) 0.1 %; Hematocrit (blood only) 25.4 % (37-47); Hemoglobin 8.2 g/dL (12.0-16.0); Immature Granulocytes # (auto) 0.06 K/uL (0.00-0.02); Immature Granulocytes % (auto) 0.3 %; Lymphocytes # (auto) 1.02 K/uL (1.2-3.4); Lymphocytes % (auto) 5.8 %; Mean Corpuscular Hemoglobin 26.1 pg (25-34); Mean Corpuscular Volume 80.9 fL (80-100); Mean Platelet Volume 11.7 fL (7.4-10.4); Monocytes # (auto) 0.43 K/uL (0.11-0.59); Monocytes % (auto) 2.4 %; Neutrophils # (auto) 16.12 K/uL (1.4-6.5); Neutrophils % (auto) 91.4 %; Platelet Count 172 K/uL (130-400); RDW Coefficient of Variation 21.9 % (11.5-14.5); Red Blood Count 3.14 M/uL (4.2-5.4); White Blood Count 17.64 K/uL (4.8-10.8)
[2020-08-19 19:44] LABS: iSTAT Art Bld Gas pCO2 Correct 34 mmHg (35-46); iSTAT Art Bld Gas pH Corrected 7.364 (7.35-7.45); iSTAT Arterial Blood Gas HCO3 19 meg/L (19-24); iSTAT Arterial Blood Gas pCO2 35 mmHg (35-46); iSTAT Arterial Blood Gas pH 7.36 (7.35-7.45); iSTAT Arterial Blood Gas pO2 200 mmHg (80-95); iSTAT Arterial Blood Gas pO2 C 198; iSTAT Carbon Dioxide 20 mmol/L (24-31); iSTAT Hematocrit 24 % (37-47); iSTAT Hemoglobin 8.2 g/dl (12.0-16.0); iSTAT Potassium 4.1 mmol/L (3.3-5.0); iSTAT Site Art Line; iSTAT Sodium 138 mmol/L (135-144)
[2020-08-19 19:46] LABS: Mean Corpuscular Hgb Conc 32.3 g/dL (32-36)
--- NOTE | 2020-08-19 19:50 | Critical Care Consultation ---
Date of Consultation August 19, 2020 Assessment & Plan (1) Acute hemorrhage: Reason Critically Ill: 35-year-old female with ectopic and acute hemorrhage requiring massive transfusion in OR, now s/p ex lap with removal of cornual , cornual rupture repair, right salpingectomy, and removal of pneumoperitoneum. Neuro - [facility] ICU: Negative Painhydromorphone as needed Cardiac - Currently hemodynamically stable following volume resuscitation in OR. NSR on monitor. No need for vasopressors at this time Continuous BP monitoring on A-line, continuous telemetry monitoring Respiratory - Extubated postop and currently weaning supplemental oxygen. Chest x-ray clear. Continuous monitoring on pulse ox GI - Ectopic pregnancys/p ex lap with removal of cornual , cornual rupture repair, and right salpingectomy -Initial quantitative hCG 28896, will repeat in a.m. -Follow-up E[employer]MENT [employer]ER recommendations RENAL/LYTES - Creatinine within normal limits, no severe electrolyte abnormality Monitor routine BMPs - Foleystrict I's note ENDO - No history of diabetes or thyroid disease ICU hyperglycemic protocol HEME - Acute blood loss anemiastatus post surgical repair of cornual rupture -Received 3 units RBCs, 2 FFP, 1 cryo for EBL 2600 in OR -Patient hemodynamically stable and repeat hemoglobin 8.2. Coags pending, will follow up. -At the time there is no indication for further transfusion. We will continue to trend H&H every 4 hours for tonight and repeat coags in a.m. monitor in ICU overnight ID - No clear indication for infectious process at this time LINES/IV ACCESS - Peripheral IVs, A-line DVT PROPHYLAXIS - SCDs, hold anticoagulation considering surgery/acute hemorrhage I have personally spent 40 minutes of critical care time in the direct management of this patient. This is a life/limb threatening event. This includes time spent evaluating patient, direct bedside care, chart review, placing orders, interpretation of diagnostic studies, discussion with consultants, patient, and family members, as well as other required patient management activities. This time is exclusive of all separately billable procedures, and teaching time and separate from and in addition to any other critical care service time. Thank you for allowing us to participate in the care of this patient. Please refer to my attending physician's documentation for any further recommendations. (2) Acute blood loss anemia: (3) Hemoperitoneum: (4) Abdominal pain: (5) Ectopic : History of Present Illness Attending Physician: Freddie Villagomez MD History of Present Illness Ms. Pina is a 35-year-old female with PMH including celiac disease, and previous oophorectomy x1 who presented to the emergency department earlier this afternoon with acute onset of right-sided abdominal pelvic pain which is started last night around 10 PM and progressively worsened throughout the night and became unbearable in the morning. She was taken for CT abdomen in the emergency department which showed right adnexal cystic mass with hemoperitoneum likely representing a hemorrhagic cyst versus ectopic or to goovarian abscess along with a large hemoperitoneum. Patient was also noted to be anemic with hemoglobin 8.5. Patient was emergently taken to the OR where she was found to have a ruptured ectopic . She underwent exploratory laparotomy with removal of cornual , cornual rupture repair, right salpingectomy, and removal of pneumoperitoneum. Patient had a EBL 2600 with 2500 evacuation and 100 surgical reported. She became hypotensive during the case and she received total of 3 units RBCs, 1 unit cryo, and 2 FFP along with 2600 crystalloid. Patient now transferred to the ICU postop for further management. On arrival to the ICU patient is alert and oriented and hemodynamically stable. I-STAT hemoglobin 8.2 at the bedside. She is an arterial line with blood pressure in the 160s with heart rate 80s to 90s normal sinus rhythm. She is maintaining oxygen saturation on oxygen mask which is currently being weaned. She initially complained of severe abdominal pain which improved with fentanyl. Chest x-ray is unremarkable. CBC, coags, and CMP pending. She denies headache, dizziness, chest pain, shortness of breath, nausea or vomiting, recent illness or fevers prior to this event, or swelling in hands and feet. No current indication for further transfusion at this time but will follow up labs and trend H&H and transfuse if indicated. Will monitor in ICU for now. Allergies Allergy/AdvReac Type Severity Reaction Status Date / Time Penicillins Allergy Intermediate HIVES Verified 08/19/20 13:34 amoxicillin Allergy Mild HIVES Verified 08/19/20 13:34 Bactrim Allergy Unknown HIVES Verified 07/14/16 13:25 gluten Allergy Unknown CELIAC'S Verified 08/19/20 13:34 DISEASE Sulfa (Sulfonamide Allergy Unknown HIVES Verified 08/19/20 13:34 Antibiotics) sulfamethoxazole [Bactrim] Allergy Unknown HIVES Verified 08/19/20 13:34 trimethoprim [Bactrim] Allergy Unknown HIVES Verified 08/19/20 13:34 Home Medications Medication Instructions Recorded Confirmed Type acetaminophen [Tylenol Extra 500 mg PO Q6H PRN 08/19/20 08/19/20 History Strength] cholecalciferol (vitamin D3) 125 mcg PO QAM 08/19/20 08/19/20 History [Vitamin D3] diphenhydramine HCl [Benadryl] 25 mg PO HS 08/19/20 08/19/20 History vitamin B complex [Super B Complex] 1 tab PO QAM 08/19/20 08/19/20 History Patient History Medical History (Updated 08/19/20 @ 20:20 by MICHELLE Murphy) Abdominal pain Celiac disease Hemoperitoneum Migraine Superficial thrombosis of right lower extremity Surgical History (Updated 08/19/20 @ 19:52 by Ryanne Rubio MD) History of delivery History of salpingectomy Social History Smoking Status: Former smoker Tobacco Type: Cigarettes Preferred Language: Armenian Feels Safe at Home: Yes Review of Systems Review of Systems: All systems reviewed & are unremarkable except as noted in HPI & below Physical Exam Constitutional: cooperative; no acute distress Eyes: PERRL, conjunctivae normal, anicteric sclerae ENMT: external ear and nose normal, oropharynx normal Neck: trachea midline, no thyromegaly Respiratory: normal respiratory effort, lungs clear to auscultation Cardiovascular: RRR, no murmur, no edema Heart Sounds: normal S1 and normal S2 Vessels: no JVD Extremities: normal capillary refill; no edema Gastrointestinal (Abdomen): Lower pelvic midline incision dressed without spotting. No abdominal distention. Bowel sounds normal. Skin: no rashes, warm and dry Neurologic: PERRL, EOMI, accommodation nl, no face palsy, no dysarthria Psychiatric: A+Ox3, euthymic affect Genitourinary: Indwelling Thornton catheter present Results & Data Results & Data ([facility]) Vital Signs (Past 12 Hours) Vital Signs Temp Pulse Resp BP Pulse Ox 08/19/20 14:45 36.8 C 90 16 126/60 100 08/19/20 14:30 83 22 100 08/19/20 14:16 90 17 123/73 100 08/19/20 14:05 36.7 C 80 18 174/55 H 98 08/19/20 14:01 91 H 20 174/55 H 99 08/19/20 14:00 86 18 99 08/19/20 13:46 90 15 131/68 99 08/19/20 13:45 36.9 C 90 17 131/68 99 08/19/20 13:31 92 H 17 99 08/19/20 13:30 91 H 16 151/84 H 99 08/19/20 13:24 100 H 19 158/81 H 100 08/19/20 13:20 36.8 C 97 H 18 158/81 H 99 08/19/20 13:17 97 H 19 98 08/19/20 13:16 98 H 25 H 138/69 99 08/19/20 13:15 36.7 C 98 H 18 138/69 98 08/19/20 13:14 98 H 20 129/103 H 99 08/19/20 13:10 94 H 18 129/103 H 99 08/19/20 13:05 36.8 C 101 H 21 146/81 H 100 08/19/20 13:01 101 H 22 100 08/19/20 13:00 103 H 22 132/70 08/19/20 12:53 99 H 16 140/73 08/19/20 12:30 104 H 19 08/19/20 12:28 111 H 22 121/96 08/19/20 12:15 105 H 30 H 08/19/20 11:35 109 H 19 138/95 08/19/20 11:34 98 08/19/20 11:30 120 H 19 08/19/20 11:29 120 H 15 08/19/20 11:08 36.8 C 119 H 18 104/72 99 Coding Level of Care Code Critical Care 1st 30-74 mins Diagnoses Acute hemorrhage R58 Acute blood loss anemia D62 Hemoperitoneum K66.1 Abdominal pain R10.9 Abdominal location: unspecified location Ectopic O00.90 (1) Abdominal pain Abdominal location: unspecified location Qualified Code(s): R10.9 - Unspecified abdominal pain
--- NOTE | 2020-08-19 19:52 | XRay Report ---
XR chest 1V portable HISTORY: Respiratory failure. COMPARISON: Chest 07/14/2016. FINDINGS: There are low lung volumes with mild elevation of the right hemidiaphragm. No focal lung co nsolidations to suggest pneumonia. No evidence for pulmonary edema. The heart is normal in size. No p leural effusions. No pneumothorax. IMPRESSION: Low lung volumes with mild elevation of the right hemidiaphragm. Otherwise, no acute process within t he chest. ACT 112: Negative or not required by law. Electronically signed by: Nate Alanis M.D. 08/19/2020 7:50 PM
[2020-08-19 20:01] LABS: Anisocytosis Present; Hypochromasia Present; Poikilocytosis Present; Polychromasia 1+
[2020-08-19 20:02] LABS: Albumin Level 2.4 gm/dl (3.4-5.0); BUN Creatinine Ratio 12.7 (10-20); Calcium 6.8 mg/dl (8.5-10.1); Creatinine Clr Calc Pharmacy 118.6 ml/min; Est GFR (African American) 122.8 ml/min; Potassium 4.2 mmol/L (3.5-5.1)
[2020-08-19 20:13] LABS: Bilirubin,Total 0.3 mg/dl (0.2-1); Globulin 2.4 gm/dl (2.5-4.0); Total Protein 4.8 gm/dl (6.4-8.2)
--- NOTE | 2020-08-19 20:14 | Anesthesiology Progress Note ---
Date of Service August 19, 2020 Anesthesia Post Procedure Vital Signs Vital Signs: Temp Pulse Pulse Resp BP BP BP 08/19/20 20:00 82 20 159/72 H 137/111 H 08/19/20 19:50 36.5 C 79 12 160/73 H 146/86 H 08/19/20 19:40 76 15 167/69 H 146/102 H 08/19/20 19:30 88 17 162/84 H 151/95 H 08/19/20 19:20 97 H 23 159/83 H 149/89 H 08/19/20 19:14 36.8 C 115 H 20 163/80 H 132/81 08/19/20 14:45 36.8 C 90 16 126/60 08/19/20 14:30 83 22 08/19/20 14:16 90 17 123/73 08/19/20 14:05 36.7 C 80 18 174/55 H 08/19/20 14:01 91 H 20 174/55 H 08/19/20 14:00 86 18 08/19/20 13:46 90 15 131/68 08/19/20 13:45 36.9 C 90 17 131/68 08/19/20 13:31 92 H 17 08/19/20 13:30 91 H 16 151/84 H 08/19/20 13:24 100 H 19 158/81 H 08/19/20 13:20 36.8 C 97 H 18 158/81 H 08/19/20 13:17 97 H 19 08/19/20 13:16 98 H 25 H 138/69 08/19/20 13:15 36.7 C 98 H 18 138/69 08/19/20 13:14 98 H 20 129/103 H 08/19/20 13:10 94 H 18 129/103 H 08/19/20 13:05 36.8 C 101 H 21 146/81 H 08/19/20 13:01 101 H 22 08/19/20 13:00 103 H 22 132/70 08/19/20 12:53 99 H 16 140/73 08/19/20 12:30 104 H 19 08/19/20 12:28 111 H 22 121/96 08/19/20 12:15 105 H 30 H 08/19/20 11:35 109 H 19 138/95 08/19/20 11:34 08/19/20 11:30 120 H 19 08/19/20 11:29 120 H 15 08/19/20 11:08 36.8 C 119 H 18 104/72 Pulse Ox 08/19/20 20:00 96 08/19/20 19:50 99 08/19/20 19:40 100 08/19/20 19:30 100 08/19/20 19:20 100 08/19/20 19:14 100 08/19/20 14:45 100 08/19/20 14:30 100 08/19/20 14:16 100 08/19/20 14:05 98 08/19/20 14:01 99 08/19/20 14:00 99 08/19/20 13:46 99 08/19/20 13:45 99 08/19/20 13:31 99 08/19/20 13:30 99 08/19/20 13:24 100 08/19/20 13:20 99 08/19/20 13:17 98 08/19/20 13:16 99 08/19/20 13:15 98 08/19/20 13:14 99 08/19/20 13:10 99 08/19/20 13:05 100 08/19/20 13:01 100 08/19/20 13:00 08/19/20 12:53 08/19/20 12:30 08/19/20 12:28 08/19/20 12:15 08/19/20 11:35 08/19/20 11:34 98 08/19/20 11:30 08/19/20 11:29 08/19/20 11:08 99 Pain Intensity Abdomen: Pain Intensity: 7 Transfer of Care Handoff Completed per policy Notes Mental Status: alert / awake / arousable and participated in evaluation Patient Amnestic to Procedure: Yes Nausea / Vomiting: adequately controlled Pain: improving with treatment Airway Patency, RR, SpO2: stable & adequate BP & HR: stable & adequate Hydration State: stable & adequate Anesthetic Complications: see Notes below and Pt Satisfied with anesthetic care Notes: Pt with significant blood loss intraoperatively requiring activation of the massive transfusion protocol. Sofi placed emergently intraop for hemodynamics and blood draws. Overall patient tolerated the blood loss and blood products well and she was extubated and taken to the ICU for overnight observation.
--- NOTE | 2020-08-19 20:16 | Procedure Note ---
Procedure Note Date of Service August 19, 2020 Radial arterial line placed emergently in OR in the middle of the case due to large volume blood loss during emergent laparoscopy and subsequent laparotomy with Dr. Villagomez. Left wrist prepped with alcohol. 20 G angiocath placed under US guidance using sterile technique including sterile gloves, surgical hats and masks. Catheter threaded using seldinger technique with return of pulsatile, bright red blood. Site covered with occlusive dressing and taped in place. Waveform consistent with correct arterial placement. After placement, fingers of procedural hand had normal perfusion. Patient tolerated procedure well without complications. Ryanne Rubio MD, PhD Anesthesiologist Coding
[2020-08-19 20:29] LABS: Fibrinogen 281 mg/dl (184-400); Partial Thromboplastin Ratio 0.9; Partial Thromboplastin Time 22.7 Seconds (21.0-31.0); Prothrombin Time 10.6 Seconds (9.0-12.0)
[2020-08-19] MEDS ORDERED: ICU PROTOCOL FOR HYPERGLYCEMIA PRN (20:31)
[2020-08-19] MEDS ORDERED: CALCIUM GLUCONATE 10% 2,000 MG in SODIUM CHLORIDE 0.9% 50 ML IV ONE (20:45)
[2020-08-19] MEDS: HYDROmorphone INJ 0.5 MG/0.5 ML SYR IV PRN ×2 (21:02→23:08)
[2020-08-19 21:16] LABS: Hematocrit (blood only) 22.9 % (37-47); Hemoglobin 7.5 g/dL (12.0-16.0)
[2020-08-19] MEDS ORDERED: LACTATED RINGER'S 1,000 ML IV SCH (21:45)
[2020-08-19 21:56] LABS: Appearance Urine Clear (Clear); Bilirubin Urine Negative (Negative); Blood Urine Negative (Negative); Color Urine Yellow; Glucose Urine UA Negative (Negative); Ketones Urine Negative (Negative); Leukocyte Esterase Urine Negative (Negative); Nitrite Urine Negative (Negative); Protein Urine Negative (Negative); Specific Gravity Urine 1.023 (1.000-1.030); Urobilinogen Urine Negative (Negative)
[2020-08-20] MEDS: HYDROmorphone INJ 0.5 MG/0.5 ML SYR IV PRN ×5 (01:29→13:39)
[2020-08-20 01:31] LABS: Hematocrit (blood only) 20.7 % (37-47); Hemoglobin 6.9 g/dL (12.0-16.0)
[2020-08-20] MEDS ORDERED: SODIUM CHLORIDE 0.9% 250 ML IV PRN ×2 (01:48→11:32)
[2020-08-20 05:30] LABS: Mean Corpuscular Hgb Conc 33.1 g/dL (32-36)
[2020-08-20 05:49] LABS: INR 1.1 (0.9-1.1); Partial Thromboplastin Ratio 0.8; Partial Thromboplastin Time 20.5 Seconds (21.0-31.0); Prothrombin Time 10.8 Seconds (9.0-12.0)
[2020-08-20 05:51] LABS: BUN Creatinine Ratio 18.8 (10-20); Calcium 7.4 mg/dl (8.5-10.1); Creatinine Clr Calc Pharmacy 156.5 ml/min; Magnesium 1.5 mg/dl (1.8-2.4); Phosphorus 3.1 mg/dl (2.5-4.9); Potassium 3.7 mmol/L (3.5-5.1)
[2020-08-20 05:56] LABS: Hematocrit (blood only) 23.6 % (37-47); Hemoglobin 7.8 g/dL (12.0-16.0); Mean Corpuscular Hemoglobin 26.6 pg (25-34); Mean Corpuscular Volume 80.5 fL (80-100); RDW Coefficient of Variation 19.8 % (11.5-14.5); RDW Standard Deviation 58.4 fL (36.4-46.3); Red Blood Count 2.93 M/uL (4.2-5.4); White Blood Count 11.37 K/uL (4.8-10.8)
[2020-08-20 06:10] LABS: Basophils # (auto) 0.02 K/uL (0-0.2); Basophils % (auto) 0.2 %; Immature Granulocytes # (auto) 0.03 K/uL (0.00-0.02); Immature Granulocytes % (auto) 0.3 %; Lymphocytes % (auto) 15.8 %; Monocytes # (auto) 0.83 K/uL (0.11-0.59); Monocytes % (auto) 7.3 %; Neutrophils # (auto) 8.69 K/uL (1.4-6.5); Neutrophils % (auto) 76.4 %; Platelet Count 142 K/uL (130-400); Platelet Estimate Normal (Normal)
[2020-08-20] MEDS: POTASSIUM CHLORIDE / WTR 10 MEQ/100 ML PLCT IV SCH ×2 (06:30→07:40)
[2020-08-20] MEDS: MAGNESIUM SULFATE / D5W 1 GM/100 ML BAG IV SCH ×3 (06:31→10:34)
--- NOTE | 2020-08-20 07:56 | Gynecologic Progress Note ---
Date of Service August 20, 2020 Assessment & Plan (1) Ectopic : (2) Acute blood loss anemia: 35yo day 1 S/p Ex lap with removal of cornual ectopic and uterine repair. Patient stable in ICU care. Transition to floor when deemed appropriate by ICU. No acute pet feeder recommendations. (3) Acute hemorrhage: (4) Hemoperitoneum: Admission and Anticipated Discharge Date Admission Date: August 19, 2020 Subjective Day 1 s/p ex lap. No acute events. Patient reports that she feels tired but otherwise doing well. We reviewed the procedure findings and answered all questions. Physical Exam Constitutional: WD/WN, vitals as above Gastrointestinal (Abdomen): Inspection/Auscultation: abdomen not distended Percussion/Palpation: abdomen soft; abdomen nontender, no guarding and abdomen not rigid Incision C/D/I Psychiatric: A+Ox3, euthymic affect Results & Data ([facility]) Vital Signs (Past 12 Hours) Vital Signs Temp Pulse Pulse Resp BP BP BP 08/20/20 06:00 73 16 08/20/20 05:30 80 19 08/20/20 05:00 92 H 15 08/20/20 04:15 37.5 C 73 16 127/65 08/20/20 04:06 37.5 C 74 16 127/60 08/20/20 03:06 37.4 C 75 16 126/62 08/20/20 02:36 37.5 C 84 16 134/63 08/20/20 02:21 37.6 C H 84 16 132/63 08/20/20 02:16 37.6 C H 81 15 128/61 08/20/20 02:01 37.8 C H 86 16 129/61 08/20/20 00:30 88 18 08/20/20 00:00 94 H 16 121/66 08/19/20 23:52 87 08/19/20 23:30 93 H 20 08/19/20 23:02 37.5 C 106 H 13 08/19/20 23:01 37.5 C 110 H 31 H 120/79 08/19/20 23:00 100 H 22 08/19/20 22:30 83 15 08/19/20 22:00 78 14 132/73 08/19/20 21:30 80 15 08/19/20 21:15 79 13 08/19/20 21:11 93 H 19 135/82 08/19/20 21:06 87 23 103/82 08/19/20 21:00 77 16 139/88 08/19/20 20:55 82 20 137/103 H 08/19/20 20:50 77 21 130/88 08/19/20 20:45 79 14 138/78 08/19/20 20:41 86 22 129/102 H 08/19/20 20:35 83 13 141/92 H 08/19/20 20:31 88 08/19/20 20:30 72 12 153/103 H 08/19/20 20:25 79 21 140/99 08/19/20 20:21 72 14 129/88 08/19/20 20:15 79 17 142/107 H 08/19/20 20:11 37.1 C 85 18 144/110 H 08/19/20 20:10 95 H 14 08/19/20 20:00 82 20 159/72 H 137/111 H Pulse Ox 08/20/20 06:00 98 08/20/20 05:30 99 08/20/20 05:00 100 08/20/20 04:15 97 08/20/20 04:06 98 08/20/20 03:06 97 08/20/20 02:36 97 08/20/20 02:21 97 08/20/20 02:16 97 08/20/20 02:01 97 08/20/20 00:30 98 08/20/20 00:00 97 08/19/20 23:52 08/19/20 23:30 98 08/19/20 23:02 98 08/19/20 23:01 99 08/19/20 23:00 99 08/19/20 22:30 98 08/19/20 22:00 98 08/19/20 21:30 99 08/19/20 21:15 99 08/19/20 21:11 98 08/19/20 21:06 98 08/19/20 21:00 98 08/19/20 20:55 98 08/19/20 20:50 100 08/19/20 20:45 100 08/19/20 20:41 100 08/19/20 20:35 100 08/19/20 20:31 08/19/20 20:30 100 08/19/20 20:25 99 08/19/20 20:21 100 08/19/20 20:15 100 08/19/20 20:11 100 08/19/20 20:10 100 08/19/20 20:00 96 PG Care Time/CCT Total # of Minutes Spent Total Time Spent with Patient: Total time spent is greater than 50% in coordination of care (as documented) at patient's floor/unit and/or counseling patient: Coding Level of Care Code 95729 Subseq Hosp Care Lvl 3 Diagnoses Ectopic O00.90 Acute blood loss anemia D62 Acute hemorrhage R58 Hemoperitoneum K66.1
--- NOTE | 2020-08-20 08:44 | Critical Care Progress Note ---
Date of Service August 20, 2020 Assessment & Plan (1) Ectopic : 35-year-old female presented to the hospital because of abdominal pain was found to have an ectopic . Patient was taken to the OR 08/19/20. Patient got 3 units of PRBC and 2 units of FFP in the OR. She got another additional unit after the OR. 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 Repeat H&H in 6 hours from the last 1. If hemoglobin is still trending down then repeat CT abdomen with contrast will be ordered to make sure there is no active bleed. Clear liquids advance as tolerated I will give the patient Cipro and Flagyl for gram-negative and anaerobic coverage covering intra-abdominal infection for at least 48 hours. I have personally spent 33 minutes of critical care time in the direct management of this patient. This is a life/limb threatening event. This includes time spent evaluating patient, direct bedside care, chart review, placing orders, interpretation of diagnostic studies, discussion with consultants, patient, and family members, as well as other required patient management activities. This time is exclusive of all separately billable procedures, and teaching time and separate from and in addition to any other critical care service time. Please note the above document was generated using voice recognition software. It may contain grammatical, syntax or spelling errors. (2) Acute hemorrhage: (3) Admitted to intensive care unit: (4) Hemoperitoneum: Admission and Anticipated Discharge Date Admission Date: August 19, 2020 Subjective Patient seen and examined at bedside. No acute distress. No adverse events overnight. Patient still complains of discomfort in the belly but it is better controlled with pain medications. Denies any nausea or vomiting. Has been using incentive spirometry. T-max 37.6. Review of Systems Review of Systems: All systems reviewed & are unremarkable except as noted in Subjective Physical Exam Physical Exam: Constitutional: No acute distress HEENT: EOMI, PERRLA Respiratory system: Good air entry bilaterally, no wheeze, no rhonchi, mild crackles bilateral lower lobes CVS: S1-S2 positive, no murmurs or gallops Abdomen: Soft, nondistended, diffuse abdominal tenderness, no rebound, decreased bowel sounds Extremities: +2 pulses bilaterally radialis/ dorsalis pedis, no cyanosis, no edema Neuro: Awake alert oriented x3 Psych: Normal mood and affect G/U: Positive Thornton Skin: no rashes, warm and dry Lymphatic: no cervical or axillary lymphadenopathy Results & Data Results & Data ([facility]) Vital Signs (Past 12 Hours) Vital Signs Temp Pulse Resp BP Pulse Ox 08/20/20 08:00 37.1 C 87 14 98 08/20/20 07:00 82 13 98 08/20/20 06:00 73 16 98 08/20/20 05:30 80 19 99 08/20/20 05:00 92 H 15 100 08/20/20 04:15 37.5 C 73 16 127/65 97 08/20/20 04:06 37.5 C 74 16 127/60 98 08/20/20 03:06 37.4 C 75 16 126/62 97 08/20/20 02:36 37.5 C 84 16 134/63 97 08/20/20 02:21 37.6 C H 84 16 132/63 97 08/20/20 02:16 37.6 C H 81 15 128/61 97 08/20/20 02:01 37.8 C H 86 16 129/61 97 08/20/20 00:30 88 18 98 08/20/20 00:00 94 H 16 121/66 97 08/19/20 23:52 87 08/19/20 23:30 93 H 20 98 08/19/20 23:02 37.5 C 106 H 13 98 08/19/20 23:01 37.5 C 110 H 31 H 120/79 99 08/19/20 23:00 100 H 22 99 08/19/20 22:30 83 15 98 08/19/20 22:00 78 14 132/73 98 08/19/20 21:30 80 15 99 08/19/20 21:15 79 13 99 07/04/21 21:11 93 H 19 135/82 98 08/19/20 21:06 87 23 103/82 98 08/19/20 21:00 77 16 139/88 98 08/19/20 20:55 82 20 137/103 H 98 08/19/20 20:50 77 21 130/88 100 08/19/20 20:45 79 14 138/78 100 08/20/20 05:15 08/20/20 05:15 Coding Level of Care Code Critical Care 1st 30-74 mins Diagnoses Ectopic O00.90 Acute hemorrhage R58 Admitted to intensive care unit Z78.9 Hemoperitoneum K66.1 Time Spent (min) 33
[2020-08-20] MEDS ORDERED: CIPROFLOXACIN 500 MG TAB PO SCH (09:00)
--- NOTE | 2020-08-20 09:21 | Operative Report (OR) ---
DATE OF PROCEDURE: 08/20/2020 PROCEDURES: 1. Diagnostic laparoscopy. 2. Exploratory laparotomy with evacuation of significant hemoperitoneum of greater than approximately 2500 mL. 3. Removal of cornual ectopic . 4. Closure of uterine rupture at the cornua. 5. Right salpingectomy. PREOPERATIVE DIAGNOSES: 1. Acute pelvic pain. 2. Hemoperitoneum. 3. Right pelvic mass. POSTOPERATIVE DIAGNOSES: 1. Cornual ectopic . 2. Significant hemoperitoneum. 3. Acute hemorrhage, suspected disseminated intravascular coagulation. SURGEON: Freddie Villagomez MD. SHIRT OPERATOR: Jacqueline Shane DO. ESTIMATED BLOOD LOSS: Total of 2600 mL including 2500 evacuated hemoperitoneum plus approximately 100 mL surgical blood loss. URINE OUTPUT: Via Thornton catheter. COMPLICATIONS: None. FINDINGS: There was noted to be a right cornual ectopic , if is suspected between 12-14 weeks. There is approximately 2500 mL of hemoperitoneum noted. Bilateral ovaries were normal-appearing, left fallopian tube was distally absent from prior ectopic with a small proximal portion present. Right fallopian tube was overall grossly normal appearing. No significant adhesive disease noted. DESCRIPTION OF PROCEDURE: The patient was taken to the operating room after consents were ensured. Upon presentation, she was properly identified. General endotracheal anesthesia was obtained without difficulty. The patient was then prepped and draped in normal sterile fashion. Preprocedure timeout was performed. Dennis uterine manipulator was placed per take down inspector's specifications. A 5 mm incision was made in the left upper quadrant and a Veress needle was inserted through the incision. A 5 mm opening pressure and tympany over the liver and symmetrical abdominal rise all consistent with appropriate intra-abdominal insufflation. Abdomen was insufflated to 15 mmHg after which an optically guided trocar was inserted through the incision with immediate inspection notable for atraumatic entry. Upon immediate inspection, there was noted to be significant hemoperitoneum, which was attempted to be evacuated. A second incision was made at the umbilicus and 12 mm trocar was placed under direct visualization. At this time, the hemoperitoneum was able to be removed to some degree and the patient was placed in Trendelenburg position. There was noted to be a mass protruding off the uterus, which did appear to be an ectopic . The patient's decision was made at that time to transition to an exploratory laparotomy. A Pfannenstiel incision was made at the patient's prior incision. This was carried down to the underlying fascia with a knife and Bovie. The fascia was nicked at the midline with a knife and extended laterally in each direction with blunt dissection. Kochers were used to elevate the fascia off the underlying rectus muscles both inferiorly and superiorly. Midline was then entered bluntly, placed on stretcher to provide adequate room for delivery. Hemoperitoneum was again noted and was evacuated. The uterus was then exteriorized. At that time, the tissue was expelled from the ectopic and was noted to be suspected 12- 14 week size. The uterus was then opened at the cornua at the location of the ectopic . The ectopic tissue and products of conception were then able to be removed. Several passes were made with a dry sponge to remove any remaining membranes, until they were noted to be absent. Bleeding at this time was noted to be relatively minimal and decision was made to close the uterine defect in continuous running locked stitch. There was all together a 4-layer closure including an imbricating layer. Several [id number] stitches were used to achieve hemostasis. The uterus was observed for approximately 15-20 minutes and bleeding was noted to be absent. The right fallopian tube was serially dissected and removed. The abdomen was irrigated x3 until minimal residual blood was noted. During the procedure, the patient was noted to have symptoms of acute blood loss and received 4 units of packed red blood cells as well as FFP and cryoprecipitate during the procedure. Please see anesthesia note for full details on the number of additional products received. As the patient was receiving products, she was noted to have improved clotting. After watching the uterine closure for approximately 20 minutes without additional bleeding noted, decision was made to end the case. The uterus was returned to the maternal abdomen. The fascia was closed with 0 Vicryl continuous running lock stitch. All layers were inspected prior to closure for hemostasis. The subcutaneous layers were reapproximated with 2-0 plain in 2 layers. The skin was reapproximated with 3-0 Vicryl on a subcuticular stitch. A compression dressing was placed on top. The umbilical laparoscopic incision fascia was then closed with 0 Vicryl. All skin laparoscopic incisions were closed with 4-0 Vicryl interrupted stitch, Dermabond placed on top of the laparoscopic incisions. The patient was awoken from anesthesia and was in stable condition. However, due to the acute blood loss and concern for DIC, patient was taken to the ICU for further postsurgical care and evaluation. Job ID: [id number] [facility] HEALTH SYSTEMDanilo
[2020-08-20] MEDS: metroNIDAZOLE 500 MG/100 ML BAG IV SCH ×2 (09:28→17:21)
[2020-08-20] MEDS: cefTRIAXone SODIUM 2,000 MG in DEXTROSE 5% 50 ML IV SCH (10:34)
[2020-08-20] MEDS: DOCUSATE SODIUM/SENNA 50/8.6MG TAB PO PRN (10:42)
[2020-08-20] MEDS ORDERED: Nursing to Pharmacy Communication SCH (10:45)
[2020-08-20 11:20] LABS: Hematocrit (blood only) 20.7 % (37-47)
--- NOTE | 2020-08-20 11:42 | Communication Note ---
Date of Service: August 20, 2020 Critical CARE addendum: Patient's hemoglobin was 6.9 when the patient got the 1 unit PRBC. Repeat H&H in the morning was 7.8. On repeating the H&H 6 hours from the morning it is gone down to 7 Patient is also complaining of abdominal pain which is worse than at night. I think patient is still actively bleeding I am going to order 2 units of PRBC to be given as soon as possible CT abdomen pelvis with IV contrast also stat I discussed the case with Dr. Shane and made aware of the findings. Based on the CT abdomen pelvis finding the plan would be to have total hysterectomy versus IR guided embolization DIC work up ordered. I have personally spent additional 45 minutes of critical care time in the direct management of this patient. This is a life/limb threatening event. This includes time spent evaluating patient, direct bedside care, chart review, placing orders, interpretation of diagnostic studies, discussion with consultants, patient, and family members, as well as other required patient management activities. This time is exclusive of all separately billable procedures, and teaching time and separate from and in addition to any other critical care service time. Please note the above document was generated using voice recognition software. It may contain grammatical, syntax or spelling errors. Coding Level of Care Code Critical Care [email or web address] [email or web address] 30 min Time Spent (min) 45
[2020-08-20] MEDS: HYDROmorphone INJ 1 MG/ML SYRINGE IV PRN ×5 (12:16→22:21)
[2020-08-20] MEDS ORDERED: OPTIRAY 320 100ml IV ONE (12:27)
[2020-08-20 12:30] LABS: Platelet Count 116 K/uL (130-400)
[2020-08-20 12:31] LABS: Platelet Estimate Normal (Normal)
[2020-08-20] MEDS: LACTATED RINGER'S 1,000 ML IV SCH ×2 (12:43→22:52)
--- NOTE | 2020-08-20 13:12 | CT Scan Report ---
ABDOMEN AND PELVIS CT WITH IV CONTRAST CT DOSE: 784.34 mGycm HISTORY: Follow up study in a patient with recent right adnexal ectopic gestation with laparoscopic r emoval. r/o active bleeding TECHNIQUE: Multiaxial CT images of the abdomen and pelvis were performed following the IV administrat ion of 94 cc of Optiray, A dose lowering technique was utilized adhering to the principles of ALARA. COMPARISON STUDY: CT abdomen and pelvis 08/19/2020 FINDINGS: Small layering pleural effusions are new from comparison. Mild dependent bibasilar atelecta sis. Small volume pneumoperitoneum. Imaged inferior cardiac chambers are unremarkable. The spleen, pa ncreas and adrenal glands are unremarkable. Mild distention of the gallbladder with layering hyperden se material suggestive of vicarious excretion of contrast. Unremarkable liver. Patency of the hepatic and portal veins. The kidneys are within normal limits. Urinary bladder is decompressed with Thornton catheter in place. A ir within the bladder lumen is likely secondary to instrumentation. Enlarged heterogeneous uterus wit h endometrial thickening and heterogeneity. There is a 6.7 x 4.0 cm heterogeneous structure within th e right corneal distribution of the uterus/right adnexum in the area of the previously described comp zachariah lesion which overall measuring up to approximately 11.4 cm. Mild hemoperitoneum has decreased fro m comparison. Surgical suture material noted within the abdominal left lower quadrant. No bowel obstr uction or bowel wall thickening. There are a few prominent air-filled loops of small bowel suggestive of ileus. The visualized appendix is noninflamed. Air and subcutaneous stranding noted within the an terior abdominal wall. No discrete postoperative fluid collection identified. No acute fracture. IMPRESSION: 1. Interval removal of the previously described heterogeneous centrally cystic lesion within the abdo kiki right lower quadrant. There is a 6.7 x 4.0 cm area of heterogeneity and decreased enhancement i n the right corneal distribution of the uterus and right adnexum, presumably postsurgical. No discret e postoperative fluid collection. 2. Small volume of hemopneumoperitoneum. Hemoperitoneum has decreased from comparison and the pneumop eritoneum is likely postsurgical. 3. Small pleural effusions. 4. No bowel obstruction or bowel wall thickening. ACT 112: Negative or not required by law. The above report was generated using voice recognition software. It may contain grammatical, syntax o r spelling errors. Electronically signed by: Freddie Johnson M.D. 08/20/2020 1:10 PM
--- NOTE | 2020-08-20 13:46 | Gynecologic Progress Note ---
Date of Service August 20, 2020 Assessment & Plan (1) Acute blood loss anemia: I reviewed CT images and also spoke by phone with interpreting radiologist. No obvious active bleeding. There is a postoperative collection around the right uterine cornua - this appears to be a postop change, rather than an acute bleed. Given patient's stable vitals, good urine output, and CT scan results, Dr Coleman and I discussed differentials for anemia: DIC, dilution, vs active bleed. I think it is prudent at this time to continue monitoring patient closely, continue interval labs. Admission and Anticipated Discharge Date Admission Date: August 19, 2020 Subjective Discuss[address] case with Dr Coleman (ICU necktie centralizing machine operator) - patient's hemoglobin returned 6.9 this AM, she rec'd 1u PRBC in response to this morning lab (rec'd 5u PRBC, 2u FFP, 1u cryo yesterday). Initially up to 7.8, then dropped to 7.0. We discussed ordering CT abd/pelvis to eval for active bleeding. I went to see patient in ICU just prior to her going to radiology for CT scan. Pt states she is feeling worse abdominal pain than overnight. Physical Exam Physical Exam: Urine output clear yellow - 700cc at that time since beginning of shift. Vitals stable. General: pale, awake, talking, feeling lots of emotions at the news of both and loss. Abdomen: soft, tender in RLQ on palpation. Not distended. No bleeding from incisions. : scant blood Ext: EPCs on, no edema. Results & Data ([facility]) Vital Signs (Past 12 Hours) Vital Signs Temp Pulse Resp BP Pulse Ox 08/20/20 13:36 37.5 C 81 16 107/66 98 08/20/20 12:40 96 H 22 129/70 97 08/20/20 12:00 89 27 H 99 08/20/20 11:00 84 23 100 08/20/20 10:00 74 28 H 98 08/20/20 09:00 82 21 97 08/20/20 08:00 37.1 C 87 14 98 08/20/20 07:00 82 13 98 08/20/20 06:00 73 16 98 08/20/20 05:30 80 19 99 08/20/20 05:00 92 H 15 100 08/20/20 04:15 37.5 C 73 16 127/65 97 08/20/20 04:06 37.5 C 74 16 127/60 98 08/20/20 03:06 37.4 C 75 16 126/62 97 08/20/20 02:36 37.5 C 84 16 134/63 97 08/20/20 02:21 37.6 C H 84 16 132/63 97 08/20/20 02:16 37.6 C H 81 15 128/61 97 08/20/20 02:01 37.8 C H 86 16 129/61 97
[2020-08-20 18:10] LABS: Hematocrit (blood only) 26.2 % (37-47); Hemoglobin 8.9 g/dL (12.0-16.0)
[2020-08-20 19:16] LABS: Partial Thromboplastin Ratio 0.9; Partial Thromboplastin Time 23.6 Seconds (21.0-31.0)
[2020-08-20 19:38] LABS: Prothrombin Time 10.1 Seconds (9.0-12.0)
[2020-08-20 19:39] LABS: Fibrinogen 357 mg/dl (184-400)
[2020-08-20 23:55] LABS: Hematocrit (blood only) 25.9 % (37-47); Hemoglobin 8.6 g/dL (12.0-16.0)
[2020-08-21] MEDS: metroNIDAZOLE 500 MG/100 ML BAG IV SCH ×2 (00:27→08:41)
[2020-08-21] MEDS: HYDROmorphone INJ 1 MG/ML SYRINGE IV PRN ×4 (00:32→07:15)
[2020-08-21 05:33] LABS: Basophils # (auto) 0.01 K/uL (0-0.2); Basophils % (auto) 0.1 %; Eosinophils # (auto) 0.03 K/uL (0-0.5); Eosinophils % (auto) 0.3 %; Hemoglobin 8.6 g/dL (12.0-16.0); Immature Granulocytes # (auto) 0.03 K/uL (0.00-0.02); Immature Granulocytes % (auto) 0.3 %; Lymphocytes # (auto) 0.89 K/uL (1.2-3.4); Lymphocytes % (auto) 10.2 %; Mean Corpuscular Hemoglobin 26.9 pg (25-34); Mean Corpuscular Hgb Conc 33.1 g/dL (32-36); Mean Corpuscular Volume 81.3 fL (80-100); Mean Platelet Volume 11.1 fL (7.4-10.4); Monocytes # (auto) 0.54 K/uL (0.11-0.59); Monocytes % (auto) 6.2 %; Neutrophils # (auto) 7.19 K/uL (1.4-6.5); Neutrophils % (auto) 82.9 %; Platelet Count 121 K/uL (130-400); RDW Coefficient of Variation 18.2 % (11.5-14.5); RDW Standard Deviation 54.3 fL (36.4-46.3); White Blood Count 8.69 K/uL (4.8-10.8)
[2020-08-21 05:43] LABS: Partial Thromboplastin Ratio 0.9; Partial Thromboplastin Time 22.6 Seconds (21.0-31.0); Prothrombin Time 9.9 Seconds (9.0-12.0)
--- NOTE | 2020-08-21 05:53 | Electrocardiogram Report ---
Test Reason : Blood Pressure : / mmHG Vent. Rate : 084 BPM Atrial Rate : 084 BPM P-R Int : 126 ms QRS Dur : 094 ms QT Int : 412 ms P-R-T Axes : 041 053 016 degrees QTc Int : 486 ms Normal sinus rhythm Nonspecific T wave abnormality Prolonged QT Abnormal ECG When compared with ECG of 14-JUL-2016 13:02, Inverted T waves have replaced nonspecific T wave abnormality in Anterior leads Confirmed by Uriel Irwin ([id number]) on 08/21/2020 5:52:48 AM Referred By: REFERRED SELF Confirmed By:Uriel Irwin
[2020-08-21 06:00] LABS: Blood Urea Nitrogen 6 mg/dl (7-18); Calcium 7.2 mg/dl (8.5-10.1); Carbon Dioxide 28 mmol/L (21-32); Chloride 109 mmol/L (98-107); Est GFR (African American) > 150.0 ml/min; Est GFR (Non-African American) 135.1 ml/min; Glucose 90 mg/dl (70-99); Potassium 3.3 mmol/L (3.5-5.1); Sodium 139 mmol/L (136-145)
[2020-08-21] MEDS ORDERED: POTASSIUM CHLORIDE CRTAB 20 MEQ TABCR PO STA (06:04)
[2020-08-21 06:16] LABS: Phosphorus 1.9 mg/dl (2.5-4.9)
[2020-08-21] MEDS: POTASSIUM CHLORIDE / WTR 10 MEQ/100 ML PLCT IV SCH ×2 (06:18→07:27)
[2020-08-21] MEDS: LACTATED RINGER'S 1,000 ML IV SCH ×3 (07:28→19:27)
[2020-08-21] MEDS ORDERED: ACETAMINOPHEN 1000 MG/100 ML IV IV PRN (08:00)
[2020-08-21] MEDS ORDERED: oxyCODONE HCL SOLN 5 MG/5 ML UDC PO PRN (08:00)
[2020-08-21] MEDS ORDERED: POTASSIUM PHOS 3 MMOL/1 ML INFUSION IV STA (08:01)
[2020-08-21] MEDS ORDERED: POTASSIUM PHOSPHATE 15 MMOL in SODIUM CHLORIDE 0.9% 250 ML IV ONE (08:15)
[2020-08-21] MEDS: HYDROmorphone INJ 0.5 MG/0.5 ML SYR IV PRN (09:11)
[2020-08-21] MEDS: cefTRIAXone SODIUM 2,000 MG in DEXTROSE 5% 50 ML IV SCH (09:11)
--- NOTE | 2020-08-21 09:19 | Critical Care Progress Note ---
Date of Service August 21, 2020 Assessment & Plan (1) Ectopic : 35-year-old female presented to the hospital because of abdominal pain was found to have an ectopic . Patient was taken to the OR 08/19/20. Patient got 3 units of PRBC and 2 units of FFP in the OR. She got another additional unit after the OR. 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 Out of the bed to chair Repeat H&H around 10. If hemoglobin is stable patient can be downgraded to a medical floor Tylenol as well as oxycodone added to take the patient off IV Dilaudid Advance diet as tolerated Please note the above document was generated using voice recognition software. It may contain grammatical, syntax or spelling errors.Any formal questions or concerns about the content, text or information contained within the body of this dictation should be directly addressed to the provider for clarification. (2) Acute hemorrhage: (3) Admitted to intensive care unit: (4) Hemoperitoneum: Admission and Anticipated Discharge Date Admission Date: August 19, 2020 Subjective Patient seen and examined at bedside. No acute distress, no adverse events overnight. Patient states that the belly pain is better controlled compared to yesterday. She got another 2 units of PRBC yesterday. Repeat CT chest yesterday did not show any acute bleeding. Denies any nausea or vomiting. No chest pain, no shortness of breath. Afebrile Positive Flagyl Review of Systems Review of Systems: All systems reviewed & are unremarkable except as noted in Subjective Physical Exam Physical Exam: Constitutional: No acute distress HEENT: EOMI, PERRLA Respiratory system: Good air entry bilaterally, no wheeze, no rhonchi, mild crackles bilateral lower lobes CVS: S1-S2 positive, no murmurs or gallops Abdomen: Soft, nondistended, mild abdominal tenderness, no rebound, decreased bowel sounds Extremities: +2 pulses bilaterally radialis/ dorsalis pedis, no cyanosis, no edema Neuro: Awake alert oriented x3 Psych: Normal mood and affect G/U: Positive Thornton Skin: no rashes, warm and dry Lymphatic: no cervical or axillary lymphadenopathy Results & Data Results & Data ([facility]) Vital Signs (Past 12 Hours) Vital Signs Temp Pulse Resp BP Pulse Ox 08/21/20 08:00 75 08/21/20 05:30 36.5 C 94 H 18 100 08/21/20 05:00 70 15 127/65 08/21/20 04:30 69 16 96 08/21/20 04:00 62 17 113/72 97 08/21/20 03:30 69 13 96 08/21/20 03:00 36.8 C 75 13 126/68 97 08/21/20 02:30 90 23 97 08/21/20 02:00 80 12 119/72 98 08/21/20 01:30 82 22 97 08/21/20 01:00 73 22 119/60 96 08/21/20 00:30 79 13 97 08/21/20 00:00 86 13 120/78 98 08/20/20 23:30 70 14 95 08/20/20 23:00 78 14 122/76 96 08/20/20 22:00 36.4 C L 79 16 115/73 97 08/20/20 21:30 81 19 97 08/20/20 21:23 76 08/21/20 05:08 08/21/20 05:08 Coding Level of Care Code 44043 Subseq Hosp Care Lvl 3 Diagnoses Ectopic O00.90 Acute hemorrhage R58 Admitted to intensive care unit Z78.9 Hemoperitoneum K66.1
--- NOTE | 2020-08-21 09:26 | Gynecologic Progress Note ---
Date of Service August 21, 2020 Assessment & Plan (1) Ectopic : POD#2 doing well. Agree with plans to increase diet, ambulate, remove youngblood. Agree with plan to transfer out of ICU after labs return at 10a. Admission and Anticipated Discharge Date Admission Date: August 19, 2020 Subjective POD#2 doing well. Advancing diet, ok to ambulate, youngblood out. Pain control with PO meds. Physical Exam Physical Exam: Gen: AAOx3 NAD Resp: nonlabored breathing Abd: soft, appropriately postop tenderness. Incision CDI. Ext: no edema. Results & Data ([facility]) Vital Signs (Past 12 Hours) Vital Signs Temp Pulse Resp BP Pulse Ox 08/21/20 08:00 75 08/21/20 05:30 36.5 C 94 H 18 100 08/21/20 05:00 70 15 127/65 08/21/20 04:30 69 16 96 08/21/20 04:00 62 17 113/72 97 08/21/20 03:30 69 13 96 08/21/20 03:00 36.8 C 75 13 126/68 97 08/21/20 02:30 90 23 97 08/21/20 02:00 80 12 119/72 98 08/21/20 01:30 82 22 97 08/21/20 01:00 73 22 119/60 96 08/21/20 00:30 79 13 97 08/21/20 00:00 86 13 120/78 98 08/20/20 23:30 70 14 95 08/20/20 23:00 78 14 122/76 96 08/20/20 22:00 36.4 C L 79 16 115/73 97 08/20/20 21:30 81 19 97
[2020-08-21] MEDS ORDERED: MAGNESIUM HYDROXIDE SUSP 30 ML UDC PO PRN (11:13)
[2020-08-21] MEDS ORDERED: ACETAMINOPHEN 325 MG TAB PO PRN (11:13)
[2020-08-21] MEDS ORDERED: SIMETHICONE 80 MG CHEW PO PRN (11:13)
[2020-08-21] MEDS ORDERED: ONDANSETRON INJ 2 MG/ML 2 ML VIAL IV PRN (11:13)
[2020-08-21] MEDS ORDERED: bisacodyL 10 MG SUPP PR PRN (11:13)
[2020-08-21] MEDS ORDERED: ZOLPIDEM TARTRATE 5 MG TAB PO PRN (11:13)
[2020-08-21] MEDS ORDERED: KETOROLAC 30 MG/ML VIAL IV PRN (11:13)
[2020-08-21] MEDS ORDERED: MEPERIDINE HCL 25 MG/ML CARP/VIAL ONE ×2 (11:19→11:25)
[2020-08-21] MEDS: MEPERIDINE HCL 50 MG/ML CARP IV PRN ×2 (11:25→19:28)
[2020-08-21] MEDS ORDERED: ACETAMINOPHEN 500 MG TAB PO PRN (11:44)
[2020-08-21] MEDS: oxyCODONE/ACETAMINOPHEN 5mg/325mg TAB PO PRN ×2 (14:16→21:27)
[2020-08-21] MEDS: DOCUSATE SODIUM/SENNA 50/8.6MG TAB PO PRN (14:17)
[2020-08-21] MEDS: DOCUSATE SODIUM 100 MG CAP PO SCH (20:49)
[2020-08-21] MEDS: diphenhydrAMINE Capsule 25 MG CAP PO SCH (20:49)
[2020-08-22] MEDS: oxyCODONE/ACETAMINOPHEN 5mg/325mg TAB PO PRN ×6 (02:59→20:24)
[2020-08-22] MEDS: IBUPROFEN 600 MG TAB PO PRN ×5 (02:59→23:56)
[2020-08-22] MEDS: LACTATED RINGER'S 1,000 ML IV SCH ×3 (03:42→19:12)
[2020-08-22] MEDS: MEPERIDINE HCL 50 MG/ML CARP IV PRN ×3 (05:11→15:50)
[2020-08-22 06:07] LABS: Basophils # (auto) 0.01 K/uL (0-0.2); Basophils % (auto) 0.1 %; Eosinophils # (auto) 0.09 K/uL (0-0.5); Eosinophils % (auto) 1.2 %; Hematocrit (blood only) 24.6 % (37-47); Hemoglobin 8.2 g/dL (12.0-16.0); Immature Granulocytes # (auto) 0.03 K/uL (0.00-0.02); Immature Granulocytes % (auto) 0.4 %; Lymphocytes # (auto) 1.08 K/uL (1.2-3.4); Lymphocytes % (auto) 14.7 %; Mean Corpuscular Hemoglobin 27.1 pg (25-34); Mean Corpuscular Hgb Conc 33.3 g/dL (32-36); Mean Corpuscular Volume 81.2 fL (80-100); Mean Platelet Volume 11.3 fL (7.4-10.4); Monocytes # (auto) 0.29 K/uL (0.11-0.59); Monocytes % (auto) 3.9 %; Neutrophils # (auto) 5.87 K/uL (1.4-6.5); Neutrophils % (auto) 79.7 %; Platelet Count 143 K/uL (130-400); RDW Coefficient of Variation 18.2 % (11.5-14.5); RDW Standard Deviation 53.9 fL (36.4-46.3); Red Blood Count 3.03 M/uL (4.2-5.4); White Blood Count 7.37 K/uL (4.8-10.8)
[2020-08-22 06:43] LABS: BUN Creatinine Ratio 17.5 (10-20); Blood Urea Nitrogen 6 mg/dl (7-18); Calcium 7.5 mg/dl (8.5-10.1); Carbon Dioxide 26 mmol/L (21-32); Chloride 111 mmol/L (98-107); Creatinine Clr Calc Pharmacy 250.7 ml/min; Est GFR (African American) > 150.0 ml/min; Glucose 85 mg/dl (70-99); Potassium 3.3 mmol/L (3.5-5.1); Sodium 141 mmol/L (136-145)
--- NOTE | 2020-08-22 07:38 | Gynecologic Progress Note ---
Date of Service well, ambulating but still on IV pain meds August 22, 2020 Assessment & Plan (1) Ectopic : improving enc ambulation, advance diet Admission and Anticipated Discharge Date Admission Date: August 19, 2020 Physical Exam Physical Exam: incision cdi ext neg Results & Data ([facility]) Vital Signs (Past 12 Hours) Vital Signs Temp Pulse Resp BP Pulse Ox 08/22/20 03:40 98.8 F 74 18 133/82 97 08/21/20 23:00 99.1 F 73 18 117/73 98 PG Care Time/CCT Total # of Minutes Spent Total Time Spent with Patient: Total time spent is greater than 50% in coordination of care (as documented) at patient's floor/unit and/or counseling patient: Coding Level of Care Code 78932 Subseq Hosp Care Lvl 2 Diagnoses Ectopic O00.90
[2020-08-22] MEDS: DOCUSATE SODIUM 100 MG CAP PO SCH ×2 (08:18→20:26)
[2020-08-22] MEDS: CHOLECALCIFEROL 1,000 UNITS 25 MCG TAB PO SCH (08:18)
[2020-08-22] MEDS: VITAMIN B COMPLEX TAB PO SCH (14:10)
[2020-08-22] MEDS: DOCUSATE SODIUM/SENNA 50/8.6MG TAB PO PRN (17:01)
--- NOTE | 2020-08-22 17:11 | Anesthesiology Progress Note ---
Date of Service August 22, 2020 Anesthesia Post Procedure Vital Signs Vital Signs: Temp Pulse Resp BP Pulse Ox 08/22/20 11:15 37.0 C 91 H 18 128/78 08/22/20 07:20 37.4 C 85 18 117/68 98 08/22/20 03:40 37.1 C 74 18 133/82 97 08/21/20 23:00 37.3 C 73 18 117/73 98 08/21/20 19:05 37.0 C 99 H 18 137/73 100 Pain Intensity Abdomen: Pain Intensity: 8 Transfer of Care Handoff Completed per policy Notes Mental Status: alert / awake / arousable and participated in evaluation Patient Amnestic to Procedure: Yes Nausea / Vomiting: adequately controlled Pain: adequately controlled Airway Patency, RR, SpO2: stable & adequate BP & HR: stable & adequate Hydration State: stable & adequate Anesthetic Complications: no major complications apparent and Pt Satisfied with anesthetic care
[2020-08-22] MEDS: diphenhydrAMINE Capsule 25 MG CAP PO SCH (20:26)
[2020-08-22] MEDS ORDERED: LORazepam 0.5 MG TAB PO PRN (21:12)
[2020-08-22] MEDS: oxyCODONE HCL IR 5 MG TAB (IMMEDIATE RELEASE) PO PRN (23:56)
[2020-08-23] MEDS: LACTATED RINGER'S 1,000 ML IV SCH (03:16)
[2020-08-23] MEDS: oxyCODONE/ACETAMINOPHEN 5mg/325mg TAB PO PRN ×2 (04:17→08:24)
[2020-08-23] MEDS: IBUPROFEN 600 MG TAB PO PRN ×2 (04:17→08:25)
[2020-08-23] MEDS: oxyCODONE HCL IR 5 MG TAB (IMMEDIATE RELEASE) PO PRN ×2 (05:47→09:48)
[2020-08-23 06:51] LABS: Hematocrit (blood only) 26.9 % (37-47); Hemoglobin 8.8 g/dL (12.0-16.0); Mean Corpuscular Hgb Conc 32.7 g/dL (32-36); Mean Corpuscular Volume 82.5 fL (80-100); Mean Platelet Volume 11.6 fL (7.4-10.4); Platelet Count 189 K/uL (130-400); RDW Coefficient of Variation 18.4 % (11.5-14.5); RDW Standard Deviation 55.5 fL (36.4-46.3); Red Blood Count 3.26 M/uL (4.2-5.4); White Blood Count 6.97 K/uL (4.8-10.8)
[2020-08-23 07:24] LABS: BUN Creatinine Ratio 8.6 (10-20); Blood Urea Nitrogen 4 mg/dl (7-18); Calcium 7.8 mg/dl (8.5-10.1); Carbon Dioxide 27 mmol/L (21-32); Chloride 109 mmol/L (98-107); Est GFR (African American) > 150.0 ml/min; Est GFR (Non-African American) 131.9 ml/min; Glucose 97 mg/dl (70-99); Potassium 3.2 mmol/L (3.5-5.1); Sodium 140 mmol/L (136-145)
--- NOTE | 2020-08-23 07:57 | Gynecologic Progress Note ---
Date of Service August 23, 2020 Assessment & Plan Admission and Anticipated Discharge Date Admission Date: August 19, 2020 H&H stable this morning ready to be discharged scripts for percocet and ibuprofen sent to pharmacy follow up in 2 weeks for incision check Subjective still feels anxious and tearful but also feels this is resolving as well. feeling much better this morning. burning pain in incision is not much less. Ibuprofen and heat seem to work the best for the pain. Review of Systems Review of Systems: All systems reviewed & are unremarkable except as noted in HPI & below Physical Exam Constitutional: WD/WN, vitals as above Gastrointestinal (Abdomen): normal bowel sounds, soft, nontender, no hepatosplenomegaly Inspection/Auscultation: + abdominal surgical incision (dry and intact , no erythema) Psychiatric: A+Ox3, euthymic affect Results & Data ([facility]) Vital Signs (Past 12 Hours) Vital Signs Temp Pulse Resp BP Pulse Ox 08/23/20 03:20 99.3 F 75 16 126/77 100 08/22/20 23:45 99.0 F 74 17 126/75 99 PG Care Time/CCT Total # of Minutes Spent Total Time Spent with Patient: Total time spent is greater than 50% in coordination of care (as documented) at patient's floor/unit and/or counseling patient: Coding Level of Care Code None
[2020-08-23] MEDS: DOCUSATE SODIUM 100 MG CAP PO SCH (08:24)
[2020-08-23] MEDS: CHOLECALCIFEROL 1,000 UNITS 25 MCG TAB PO SCH (08:25)
[2020-08-23] MEDS: VITAMIN B COMPLEX TAB PO SCH (08:26)
--- NOTE | 2020-09-01 02:15 | Discharge Summary (DS) ---
DATE OF DISCHARGE: 08/23/2020. HOSPITAL COURSE: The patient was admitted through the emergency department for a diagnostic laparosc opy due to hemoperitoneum and an enlarged pelvic mass. In the OR, it was discovered she had a rupture d cornual ectopic with over 2500 mL of hemoperitoneum. After discovering the ruptured corn ual ectopic, the procedure was converted to an exploratory laparotomy with evacuation of the uterine and repair of the uterine disruption and salpingectomy. The patient received at least 4 un its of packed red blood cells while in the OR as well as numerous other coagulation factors or produc ts. Patient had approximately 100 mL of blood loss during the surgery itself in addition to the hemo peritoneum. Please see the operative report for further details on the procedure. After the procedu re, the patient was admitted to the ICU for further evaluation where she did receive several more uni ts of packed red blood cells. The patient was eventually stabilized and moved up to the floor on pos toperative day #2. The patient continued to recover and was discharged home on postoperative day #4. The patient was discharged home in stable condition and was given both written and verbal discharge instructions. The patient was planned for followup in clinic in approximately 2 weeks. Job ID: [id number]
== END 2020-08-23 09:57 | disposition home or self-care (01) | DRG 817 ==
LOC: ED 11:01 → OR 15:10 → 1E 15:11 → 4N 08-21 19:20